=== PATIENT | male | born 1965 | race American Indian/Alaskan Native ===

== ENCOUNTER 2021-09-05 21:19 | Inpatient (IN) | payer SELFPAY ==
[2021-09-05 22:15] LABS: Basophils % (Auto) 0.1 % (0.0-1.8); Eosinophils % (Auto) 0.1 % (0.0-4.3); Hematocrit 44.7 % (35.5-45.6); Hemoglobin 15.1 gm/dl (11.8-15.2); Lymphocytes # (Auto) 0.5 K/mm3 (1.2-5.4); Lymphocytes % (Auto) 3.1 % (13.4-35.0); Mean Corpuscular HGB Conc 34 % (32-34); Mean Corpuscular Volume 91 fl (84-94); Monocytes # (Auto) 1.5 K/mm3 (0.0-0.8); Monocytes % (Auto) 9.6 % (0.0-7.3); Platelet Count 509 K/mm3 (140-440); Red Blood Count 4.88 M/mm3 (3.65-5.03); Red Cell Distribution Width 16.5 % (13.2-15.2)
[2021-09-05 22:32] LABS: Alanine Aminotransferase 25 units/L (7-56); Albumin 3.6 g/dL (3.9-5); BUN/Creatinine Ratio 17; Blood Urea Nitrogen 17 mg/dL (9-20); Calcium 10.1 mg/dL (8.4-10.2); Hemolysis Index 7
[2021-09-05 23:40] LABS: Hyaline Casts,Urine 5 /LPF; Mucus,Urine 3+ /HPF
[2021-09-05 23:42] LABS: Bilirubin,Urine Small (Negative); Color,Urine Amber (Yellow)
[2021-09-05 23:43] LABS: Blood,Urine Trace (Negative)
[2021-09-05 23:48] LABS: Ictotest,Urine Positive (Negative)
[2021-09-06] MEDS ORDERED: MORPHINE 4 MG/1 ML INJ IV ONE (00:20)
[2021-09-06] MEDS ORDERED: SODIUM CHLORIDE 0.9% 1000 ML 1,000 ML IV ONE (00:20)
[2021-09-06] MEDS ORDERED: ONDANSETRON 4 MG/2 ML INJ IV ONE (00:20)
[2021-09-06] MEDS ORDERED: FAMOTIDINE 20 MG/2 ML INJ IV ONE (00:20)
--- NOTE | 2021-09-06 01:55 | Cat Scan Report ---
CT abdomen pelvis w con INDICATION / CLINICAL INFORMATION: Pt complains of abdominal pain x 3 weeks with vomiting. TECHNIQUE: Axial CT images were obtained through the abdomen and pelvis after 100 cc Omni 300 IV cont r[address]. All CT scans at this location are performed using CT dose reduction for ALARA by means of auto mated exposure control. COMPARISON: None available. FINDINGS: LOWER CHEST: No significant abnormality LIVER: No significant abnormality GALLBLADDER/BILIARY TREE: No significant abnormality PANCREAS: No significant abnormality SPLEEN: No significant abnormality ADRENALS: Bilateral adrenal nodules, measuring 2.4 cm on the right and up to 1.2 cm on the left, inde terminate. RIGHT KIDNEY / URETER: No significant abnormality LEFT KIDNEY / URETER: No significant abnormality URINARY BLADDER: No significant abnormality REPRODUCTIVE ORGANS: No significant abnormality STOMACH / BOWEL: Large peripherally enhancing fluid and gas collection in the right abdomen measuring 12.2 x 7.7 x 8.4 cm. There is extensive mural thickening and inflammation of the ascending colon. Th e collection abuts the ascending colon and cecum. Appendix is not identified. No significant pneumope ritoneum. Stomach and small bowel are within normal limits. There is moderate diverticulosis of the d escending and sigmoid colon without evidence of diverticulitis. LYMPH NODES: Mildly enlarged lymph nodes in the right abdomen adjacent to the collection, may be reac tive. VASCULATURE: No significant abnormality. OTHER: As above SKELETAL SYSTEM: No acute osseous findings. IMPRESSION: 1. Large 12 cm abscess in the right abdomen with extensive mural thickening and inflammation of the a scending colon/cecum. Appendix is not identified. Findings may reflect acute appendicitis with large abscess/contained perforation and reactive colitis. This could also reflect abscess/contained perfora tion related to extensive colitis. No large volume free air. 2. No other acute findings. 3. Indeterminate bilateral adrenal nodules. Recommend nonemergent CT with adrenal mass protocol, foll owing resolution of acute process. Signer Name: Troy Mead MD Signed: 09/06/2021 1:50 AM Workstation Name: [id number]
[2021-09-06] MEDS ORDERED: PIPERACIL/TAZOBACTA 4.5/NS 100 4.5 GM/100 ML VIAL IV ONE (02:05)
--- NOTE | 2021-09-06 02:21 | Emergency Department Report ---
ED Abdominal Pain HPI - General Chief Complaint: Abdominal Pain Stated Complaint: AB PAIN Source: patient Mode of arrival: Ambulatory Limitations: No Limitations - History of Present Illness Initial Comments: Patient is a 56-year-old -[place]ian male with a history of hypertension who presents to the ED with complaint of acute onset persistent diffuse abdominal pain that radiates to the right lower quadrant area with nausea for the last 1 week. Patient states that he initially thought that he was constipated and took laxatives and he had bowel movement for 2 days and thereafter he was unable to have a bowel movement. Patient states that he has not had a bowel movement in 5 days and that the pain has been worsening especially in the last 2 days. Patient denies vomiting, diarrhea, dysuria, urinary frequency and urgency, fever, chills, cough, sore throat, dizziness, syncope, chest pain, shortness of breath, testicular pain, low back pain or traumatic injury. MD Complaint: abdominal pain (diffuse abdominal pain) -: week(s) (1) Location: periumbilical Radiation: RLQ Migration to: no migration Severity scale (0 -10): 8 Quality: cramping, sharp Consistency: constant Improves With: nothing Worsens With: nothing Associated Symptoms: denies other symptoms, nausea, constipation. denies: vomiting, diarrhea, chills, dysuria, hematemesis, hematochezia, melena, hematuria, anorexia, syncope - Related Data Allergies Allergy/AdvReac Type Severity Reaction Status Date / Time No Known Allergies Allergy Verified 09/05/21 21:54 ED Review of Systems ROS: Stated complaint: AB PAIN Other details as noted in HPI Constitutional: denies: chills, fever Eyes: denies: eye pain, eye discharge, vision change ENT: denies: ear pain, throat pain Respiratory: denies: cough, shortness of breath, wheezing Cardiovascular: denies: chest pain, palpitations Endocrine: no symptoms reported Gastrointestinal: abdominal pain, nausea, constipation. denies: vomiting, diarrhea Genitourinary: denies: urgency, dysuria Musculoskeletal: denies: back pain, joint swelling, arthralgia Skin: denies: rash, lesions Neurological: denies: headache, weakness, paresthesias Psychiatric: denies: anxiety, depression Hematological/Lymphatic: denies: easy bleeding, easy bruising ED Physical Exam - General Limitations: No Limitations General appearance: alert, in no apparent distress - Head Head exam: Present: atraumatic, normocephalic, normal inspection - Eye Eye exam: Present: normal appearance, PERRL, EOMI Pupils: Present: normal accommodation - ENT ENT exam: Present: normal exam, normal orophraynx, mucous membranes moist, TM's normal bilaterally, normal external ear exam - Neck Neck exam: Present: normal inspection, full ROM - Respiratory Respiratory exam: Present: normal lung sounds bilaterally. Absent: respiratory distress, wheezes, rales, chest wall tenderness, accessory muscle use, decreased breath sounds, prolonged expiratory - Cardiovascular Cardiovascular Exam: Present: regular rate, normal rhythm, normal heart sounds. Absent: systolic murmur, diastolic murmur, rubs, gallop - GI/Abdominal GI/Abdominal exam: Present: soft, tenderness (Palpable rebound tenderness on periumbilical and right lower quadrant area with guarding), guarding, rebound, normal bowel sounds. Absent: hyperactive bowel sounds, hypoactive bowel sounds, mass - Extremities Exam Extremities exam: Present: normal inspection, full ROM, normal capillary refill. Absent: tenderness - Back Exam Back exam: Present: normal inspection, full ROM. Absent: tenderness, CVA tenderness (R), CVA tenderness (L), muscle spasm, paraspinal tenderness, keny tebral tenderness - Neurological Exam Neurological exam: Present: alert, oriented X3, CN II-XII intact, normal gait, reflexes normal - Psychiatric Psychiatric exam: Present: normal affect, normal mood - Skin Skin exam: Present: warm, dry, intact, normal color. Absent: rash ED Course Vital Signs 09/05/21 21:22 Temperature 98.6 F Pulse Rate 84 Respiratory 18 Rate Blood Pressure 186/117 O2 Sat by Pulse 98 Oximetry - Reevaluation(s) Reevaluation #1: 09/06/21 02:26 I paged and discussed the patient's case with the general surgeon on-call Dr. Longo who advised that the patient be admitted by the hospitalist physician on- call and that the interventional radiologist also be consulted to be on board. I also paged the interventional radiologist Dr. Butcher who agreed to consult on the patient upon the patient's admission in the hospital. ED Medical Decision Making - Lab Data Result diagrams: 09/05/21 22:01 09/05/21 22:01 - Radiology Data Radiology results: report reviewed, image reviewed [facility] [address] [place] [address] Cat Scan Report Signed Patient: MURRAY NEAL MR#: [id number] : 1965 Acct:[id number] Age/Sex: 56 / M ADM Date: 09/05/21 Loc: ED Attending Dr: Ordering Physician: ADENIKE SPIVEY Date of Service: 09/06/21 Procedure(s): CT abdomen pelvis w con Accession Number(s): [id number] cc: ADENIKE SPIVEY CT abdomen pelvis w con INDICATION / CLINICAL INFORMATION: Pt complains of abdominal pain x 3 weeks with vomiting. TECHNIQUE: Axial CT images were obtained through the abdomen and pelvis after 100 cc Omni [address] scans at this location are performed using CT dose reduction for ALARA by means of automated exposure control. COMPARISON: None available. FINDINGS: LOWER CHEST: No significant abnormality LIVER: No significant abnormality GALLBLADDER/BILIARY TREE: No significant abnormality PANCREAS: No significant abnormality SPLEEN: No significant abnormality ADRENALS: Bilateral adrenal nodules, measuring 2.4 cm on the right and up to 1.2 cm on the left, indeterminate. RIGHT KIDNEY / URETER: No significant abnormality LEFT KIDNEY / URETER: No significant abnormality URINARY BLADDER: No significant abnormality REPRODUCTIVE ORGANS: No significant abnormality STOMACH / BOWEL: Large peripherally enhancing fluid and gas collection in the right abdomen measuring 12.2 x 7.7 x 8.4 cm. There is extensive mural thickening and inflammation of the ascending colon. The collection abuts the ascending colon and cecum. Appendix is not identified. No significant pneumoperitoneum. Stomach and small bowel are within normal limits. There is moderate diverticulosis of the descending and sigmoid colon without evidence of diverticulitis. LYMPH NODES: Mildly enlarged lymph nodes in the right abdomen adjacent to the collection, may be reactive. VASCULATURE: No significant abnormality. OTHER: As above SKELETAL SYSTEM: No acute osseous findings. IMPRESSION: 1. Large 12 cm abscess in the right abdomen with extensive mural thickening and inflammation of the ascending colon/cecum. Appendix is not identified. Findings may reflect acute appendicitis with large abscess/contained perforation and reactive colitis. This could also reflect abscess/contained perforation related to extensive colitis. No large volume free air. 2. No other acute findings. 3. Indeterminate bilateral adrenal nodules. Recommend nonemergent CT with adrenal mass protocol, following resolution of acute process. Signer Name: Panchito Mead MD Signed: 09/06/2021 1:50 AM Workstation Name: [id number] Transcribed By: LARRY Dictated By: PANCHITO MEAD MD Electronically Authenticated By: PANCHITO MEAD MD Signed Date/Time: 09/06/21149 DD/ 8 TD/TT: - Medical Decision Making This is a 56-year-old -Mal[place]ian male with a history of hypertension who presents to the ED with complaint of acute onset persistent diffuse abdominal pain that radiates to the right lower quadrant area with nausea for the last 1 week. Patient states that he initially thought that he was constipated and took laxatives and he had bowel movement for 2 days and thereafter he was unable to have a bowel movement. Patient states that he has not had a bowel movement in 5 days and that the pain has been worsening especially in the last 2 days. In the ED, patient is alert and oriented x3 and is not in any distress. Patient was treated for pain in the ED. Patient also received normal saline 1 L IV bolus x1. Patient also received antacids. Lab test results were reviewed and showed acute leukocytosis of 15,800. The rest of the lab test results were nonactionable. The abdomen pelvis CT scan with IV contrast showed a large 12 cm abscess in the right abdomen with extensive mural thickening and inflammation of the ascending colon/cecum. Appendix is not identified. Findings may reflect acute appendicitis with large abscess/contained perforation and reactive colitis. This could also reflect abscess/contained perforation related to extensive colitis. No large volume free air. No other acute findings. It also showed indeterminate bilateral adrenal nodules. Recommend nonemergent CT with adrenal mass protocol, following resolution of acute process. These findings were discussed with the ED attending physician Dr. Saldivar who agreed with the plan of care to admit the patient to the hospital and consult the general surgeon on- call as well as the hospitalist physician on-call. I therefore paged and discu ssed the patient's case with the general surgeon on-call Dr. Longo who advised that the patient be admitted to the hospital by the hospitalist physician on- call, Dr. Mireles and that interventional radiologist also be consulted to be on board. I also paged and discussed the patient's case with Dr. Butcher the interventional radiologist who agreed to consult on the patient upon admission to the hospital as a routine procedure. Therefore discussed the patient's case with the hospitalist physician on-call Dr. Mireles who admitted the patient to the hospital. Patient was also started on Zosyn 4.5 g IV x1 in the ED. - Differential Diagnosis Appendicitis; Kidney stones; UTI; Colitis; Constipation; diverticulitis Critical care attestation.: If time is entered above; I have spent that time in minutes in the direct care of this critically ill patient, excluding procedure time. ED Disposition Clinical Impression: Acute abdominal pain in right lower quadrant, Acute appendicitis with appendiceal abscess, Acute colitis Disposition: 02 [facility] Is pt being admited?: Yes Does the pt Need Aspirin: No Condition: Stable Instructions: Abdominal Pain, Adult, [id number], Appendicitis, Adult, [id number] Referrals: [facility] [Provider Group] - 3-5 Days Time of Disposition: 02:28 Print Language: LIBYAN
[2021-09-06] MEDS ORDERED: MAGNESIUM HYDROXIDE (MOM) ORAL LIQD UDC PO PRN (03:08)
[2021-09-06] MEDS ORDERED: MORPHINE 2 MG/1 ML INJ IV PRN (03:08)
[2021-09-06] MEDS ORDERED: ONDANSETRON 4 MG/2 ML INJ IV PRN ×2 (03:08→03:33)
[2021-09-06] MEDS ORDERED: ACETAMINOPHEN 325 MG TAB PO PRN ×2 (03:08→03:33)
--- NOTE | 2021-09-06 03:19 | History and Physical Report ---
History of Present Illness Date of examination: 09/06/21 Date of admission: 09/06/2021 Chief complaint: Abdominal Pain History of present illness: 56-year-old -[place] male with known history of hypertension presenting the emergency room today complaining of sudden onset of abdominal pain. Abdominal pain has been ongoing for the past 1 week. Pain is more in the right lower abdomen and has been associated with nausea but no vomiting. Indicates he was also constipated for about a week and took some laxative with good results about 2 days ago. He has subsequently been constipated. He denies any hematuria or dysuria, denies any bright red blood per rectum. Patient denies any chest pain or shortness of breath, no headache or dizziness and no diaphoresis. Work-up in the emergency room today, labs significant for leukocytosis of 15.8, all other labs were unremarkable. CT of the abdomen pelvis reveals: 1. Abnormality involving the left vertebral ar khushboo as described above. 2. Narrowing seen at the origin of the left internal carotid artery-correlation with carotid Doppler analysis may be of benefit. General surgeon on-call has been notified by the ER physician. Past History Past Medical History: hypertension Past Surgical History: No surgical history Social history: no significant social history Family history: no significant family history Medications and Allergies Allergies Allergy/AdvReac Type Severity Reaction Status Date / Time No Known Allergies Allergy Verified 09/05/21 21:54 Active Meds: Active Medications Acetaminophen (Acetaminophen 325 Mg Tab) 650 mg PO Q4H PRN PRN Reason: Pain MILD(1-3)/Fever >100.5/DURAND Sodium Chloride (Nacl 0.9% 1000 Ml) 1,000 mls @ 125 mls/hr IV DIRECT ERICH Magnesium Hydroxide (Magnesium Hydroxide (Mom) Oral Liqd Udc) 30 ml PO Q4H PRN PRN Reason: Constipation Morphine Sulfate (Morphine 2 Mg/1 Ml Inj) 2 mg IV Q4H PRN PRN Reason: Pain, Moderate (4-6) Morphine Sulfate (Morphine 4 Mg/1 Ml Inj) 4 mg IV Q4H PRN PRN Reason: Pain , Severe (7-10) Ondansetron HCl (Ondansetron 4 Mg/2 Ml Inj) 4 mg IV Q8H PRN PRN Reason: Nausea And Vomiting Sodium Chloride (Sodium Chloride 0.9% 10 Ml Flush Syringe) 10 ml IV BID ERICH Sodium Chloride (Sodium Chloride 0.9% 10 Ml Flush Syringe) 10 ml IV PRN PRN PRN Reason: LINE FLUSH Review of Systems Constitutional: no fever, no chills Ears, nose, mouth and throat: no nasal congestion, no sore throat Cardiovascular: no chest pain, no palpitations Respiratory: no cough, no shortness of breath Gastrointestinal: abdominal pain, nausea, no vomiting, no diarrhea, no constipation Genitourinary Male: no dysuria, no hematuria, no flank pain, no nocturia Musculoskeletal: no neck pain, no low back pain Integumentary: no rash, no pruritis Neurological: no headaches, no confusion Psychiatric: no anxiety, no depression Endocrine: no polyphagia, no polydipsia, no polyuria Exam - Constitutional Vitals: Temp Pulse Resp BP Pulse Ox 98.6 F 84 18 186/117 98 09/05/21 21:22 09/05/21 21:22 09/05/21 21:22 09/05/21 21:22 09/05/21 21:22 General appearance: Present: no acute distress, well-nourished - EENT Eyes: Present: PERRL, EOM intact. Absent: scleral icterus ENT: hearing intact, clear oral mucosa, dentition normal - Neck Neck: Present: supple, normal ROM - Respiratory Respiratory effort: normal Respiratory: bilateral: CTA - Cardiovascular Rhythm: regular Heart Sounds: Present: S1 & S2. Absent: gallop, systolic murmur, diastolic murmur, rub, click - Extremities Extremities: no ischemia, pulses intact, pulses symmetrical, No edema, normal temperature, normal color, Full ROM Peripheral Pulses: within normal limits - Abdominal General gastrointestinal: Present: soft, tender (Mild Right lower quadrant tenderness,No guarding), non-distended, normal bowel sounds. Absent: mass - Integumentary Integumentary: Present: clear, warm, dry, normal turgor. Absent: rash - Musculoskeletal Musculoskeletal: strength equal bilaterally - Psychiatric Psychiatric: appropriate mood/affect, intact judgment & insight, memory intact, cooperative - Neurologic Neurologic: CNII-XII intact, no focal deficits, moves all extremities Results - Labs CBC & Chem 7: 09/05/21 22:01 09/05/21 22:01 Labs: Abnormal lab results 09/05/21 09/05/21 09/05/21 Range/Units 22:01 22:01 22:01 WBC 15.8 H (4.5-11.0) K/mm3 RDW 16.5 H (13.2-15.2) % Plt Count 509 H (140-440) K/mm3 Lymph % (Auto) 3.1 L (13.4-35.0) % [place] % (Auto) 9.6 H (0.0-7.3) % Lymph # (Auto) 0.5 L (1.2-5.4) K/mm3 [place] # (Auto) 1.5 H (0.0-0.8) K/mm3 Seg Neutrophils % 87.1 H (40.0-70.0) % Seg Neutrophils # 13.8 H (1.8-7.7) K/mm3 Sodium 136 L (137-145) mmol/L Chloride 92.0 L (98-107) mmol/L Glucose 130 H (75-100) mg/dL Total Protein 9.2 H (6.3-8.2) g/dL Albumin 3.6 L (3.9-5) g/dL Lipase 7 L (13-60) units/L Assessment and Plan - Patient Problems (1) Acute appendicitis with appendiceal abscess Current Visit: Yes Status: Acute Plan to address problem: Patient commenced on empiric IV antibiotics. Consult to general surgery has been requested. (2) Hypertension Current Visit: Yes Status: Acute Plan to address problem: Will resume routine home medication once able to tolerate p.o. intake. Will monitor vital signs closely. (3) DVT prophylaxis Current Visit: Yes Status: Acute Plan to address problem: Will place patient on sequential compression device. (4) Full code status Current Visit: Yes Status: Acute Plan to address problem: Patient is full code.
--- NOTE | 2021-09-06 06:53 | Consultation ---
History of Present Illness Consult date: 09/06/21 Reason for consult: abdominal pain - History of present illness History of present illness: Patient is a 56-year-old -[place] male with a history of hypertension who presents to the ED with complaint of acute onset persistent diffuse abdominal pain that radiates to the right lower quadrant area with nausea for the last 1 week. Patient states that he initially thought that he was constipated and took laxatives and he had bowel movement for 2 days and thereafter he was unable to have a bowel movement. Patient states that he has not had a bowel movement in 5 days and that the pain has been worsening especially in the last 2 days. Patient denies vomiting, diarrhea, dysuria, urinary frequency and urgency, fever, chills, cough, sore throat, dizziness, syncope, chest pain, shortness of breath, testicular pain, low back pain or traumatic injury. Past History Past Medical History: hypertension Past Surgical History: No surgical history Social history: no significant social history Family history: no significant family history Medications and Allergies Allergies Allergy/AdvReac Type Severity Reaction Status Date / Time No Known Allergies Allergy Verified 09/05/21 21:54 Active Meds: Active Medications Acetaminophen (Acetaminophen 325 Mg Tab) 650 mg PO Q4H PRN PRN Reason: Pain MILD(1-3)/Fever >100.5/DURAND Sodium Chloride (Nacl 0.9% 1000 Ml) 1,000 mls @ 125 mls/hr IV DIRECT ERICH Piperacillin Sod/Tazobactam Sod (Zosyn/Ns 4.5gm/100ml) 4.5 gm in 100 mls @ 200 mls/hr IV Q8H ERICH; Protocol Magnesium Hydroxide (Magnesium Hydroxide (Mom) Oral Liqd Udc) 30 ml PO Q4H PRN PRN Reason: Constipation Morphine Sulfate (Morphine 2 Mg/1 Ml Inj) 2 mg IV Q4H PRN PRN Reason: Pain, Moderate (4-6) Morphine Sulfate (Morphine 4 Mg/1 Ml Inj) 4 mg IV Q4H PRN PRN Reason: Pain , Severe (7-10) Ondansetron HCl (Ondansetron 4 Mg/2 Ml Inj) 4 mg IV Q8H PRN PRN Reason: Nausea And Vomiting Sodium Chloride (Sodium Chloride 0.9% 10 Ml Flush Syringe) 10 ml IV BID ERICH Sodium Chloride (Sodium Chloride 0.9% 10 Ml Flush Syringe) 10 ml IV PRN PRN PRN Reason: LINE FLUSH Exam Vital Signs Temp Pulse Resp BP Pulse Ox 98.6 F 84 18 186/117 98 09/05/21 21:22 09/05/21 21:22 09/05/21 21:22 09/05/21 21:22 09/05/21 21:22 - General physical appearance Positive: well developed, no distress. Negative: moderate distress - Neck Positive: no masses, no bruits, trachea midline - Respiratory Positive: normal expansion - Cardiovascular Rhythm: regular - Extremities Extremities: no ischemia, No edema - Abdomen Abdomen: Present: other (soft, tenderness (Palpable rebound tenderness on periumbilical and right lower quadrant area with guarding), guarding, rebound, normal bowel sounds. Absent: hyperactive bowel sounds, hypoactive bowel sounds, mass) - Neurologic Neurologic: alert and oriented to time, place and person, motor strength and se nsation are grossly intact, CN II-XII intact Results - Labs 09/05/21 22:01 09/05/21 22:01 Abnormal lab results 09/05/21 09/05/21 09/05/21 Range/Units 22:01 22:01 22:01 WBC 15.8 H (4.5-11.0) K/mm3 RDW 16.5 H (13.2-15.2) % Plt Count 509 H (140-440) K/mm3 Lymph % (Auto) 3.1 L (13.4-35.0) % [place] % (Auto) 9.6 H (0.0-7.3) % Lymph # (Auto) 0.5 L (1.2-5.4) K/mm3 [place] # (Auto) 1.5 H (0.0-0.8) K/mm3 Seg Neutrophils % 87.1 H (40.0-70.0) % Seg Neutrophils # 13.8 H (1.8-7.7) K/mm3 Sodium 136 L (137-145) mmol/L Chloride 92.0 L (98-107) mmol/L Glucose 130 H (75-100) mg/dL Total Protein 9.2 H (6.3-8.2) g/dL Albumin 3.6 L (3.9-5) g/dL Lipase 7 L (13-60) units/L Diabetes panel 09/05/21 Range/Units 22:01 Sodium 136 L (137-145) mmol/L Potassium 3.8 (3.6-5.0) mmol/L Chloride 92.0 L (98-107) mmol/L Carbon Dioxide 27 (22-30) mmol/L BUN 17 (9-20) mg/dL Creatinine 1.0 (0.8-1.3) mg/dL Glucose 130 H (75-100) mg/dL Calcium 10.1 (8.4-10.2) mg/dL AST 25 (5-40) units/L ALT 25 (7-56) units/L Alkaline Phosphatase 108 (35-129) units/L Total Protein 9.2 H (6.3-8.2) g/dL Albumin 3.6 L (3.9-5) g/dL Calcium panel 09/05/21 Range/Units 22:01 Calcium 10.1 (8.4-10.2) mg/dL Albumin 3.6 L (3.9-5) g/dL Pituitary panel 09/05/21 Range/Units 22:01 Sodium 136 L (137-145) mmol/L Potassium 3.8 (3.6-5.0) mmol/L Chloride 92.0 L (98-107) mmol/L Carbon Dioxide 27 (22-30) mmol/L BUN 17 (9-20) mg/dL Creatinine 1.0 (0.8-1.3) mg/dL Glucose 130 H (75-100) mg/dL Calcium 10.1 (8.4-10.2) mg/dL Adrenal panel 09/05/21 Range/Units 22:01 Sodium 136 L (137-145) mmol/L Potassium 3.8 (3.6-5.0) mmol/L Chloride 92.0 L (98-107) mmol/L Carbon Dioxide 27 (22-30) mmol/L BUN 17 (9-20) mg/dL Creatinine 1.0 (0.8-1.3) mg/dL Glucose 130 H (75-100) mg/dL Calcium 10.1 (8.4-10.2) mg/dL Total Bilirubin 0.50 (0.1-1.2) mg/dL AST 25 (5-40) units/L ALT 25 (7-56) units/L Alkaline Phosphatase 108 (35-129) units/L Total Protein 9.2 H (6.3-8.2) g/dL Albumin 3.6 L (3.9-5) g/dL Assessment and Plan 56 yo with 12 cm retrocecal fluid/abscess and air. He is more comfortable than would be expected from the CT images. WBC 15,000. Would appreciate Dr. Butcher's evaluation for possible percutaneous drainage of abscess. Cont npo, ivf for hydration and iv ab.
[2021-09-06] MEDS: MORPHINE 4 MG/1 ML INJ IV PRN ×3 (07:29→22:20)
[2021-09-06] MEDS: SODIUM CHLORIDE 0.9% 1000 ML 1,000 ML IV SCH ×3 (08:07→23:28)
[2021-09-06] MEDS: PIPERACIL/TAZOBACTA 4.5/NS 100 4.5 GM/100 ML VIAL IV SCH ×2 (09:14→17:52)
--- NOTE | 2021-09-06 10:20 | Progress Note ---
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 Patient stated that he had not had a bowel movement in 5 days and that the pain worsened the last [address] scan of the abdomen pelvis revealed a large 12 cm abscess in the right abdomen with extensive mural thickening and inflammation of the ascending colon/cecum. Findings suggestive of acute appendicitis with large abscess and contained perforation and reactive colitis. Also, bilateral adrenal nodules Acute appendicitis Appendiceal abscess Acute colitis Bilateral adrenal nodules. 2.4 cm on the right and up to 1.2 cm on the left Accelerated hypertension 09/06/2021. General surgery consulted and likely to perform appendectomy. Continue IV antibiotics and monitor closely. We will start IV hydralazine given n.p.o. status. Patient will also need further work-up given the hypertension and bilateral adrenal nodules with CT contrast adrenal mass protocol. History Interval history: No new issues overnight Hospitalist Physical - Constitutional Vitals: Temp Pulse Resp BP Pulse Ox 98.5 F 65 16 193/107 96 09/06/21 07:00 09/06/21 08:16 09/06/21 08:16 09/06/21 08:16 09/06/21 08:16 General appearance: Present: no acute distress, well-nourished - EENT Eyes: Present: PERRL, EOM intact ENT: hearing intact, clear oral mucosa, dentition normal - Neck Neck: Present: supple, normal ROM - Respiratory Respiratory effort: normal Respiratory: bilateral: CTA - Cardiovascular Rhythm: regular Heart Sounds: Present: S1 & S2. Absent: gallop, rub - Extremities Extremities: no ischemia, No edema, Full ROM - Abdominal General gastrointestinal: soft, non-tender, non-distended, normal bowel sounds - Integumentary Integumentary: Present: clear, warm, dry - Neurologic Neurologic: CNII-XII intact, moves all extremities Results - Labs CBC & Chem 7: 09/05/21 22:01 09/05/21 22:01 Labs: Laboratory Last Values WBC 15.8 K/mm3 (4.5-11.0) H 09/05/21 22:01 RBC 4.88 M/mm3 (3.65-5.03) 09/05/21 22: Hgb 15.1 gm/dl (11.8-15.2) 09/05/21 22:01 Hct 44.7 % (35.5-45.6) 09/05/21 22: MCV 91 fl (84-94) 09/05/21 22: MCH 31 pg (28-32) 09/05/21 22: MCHC 34 % (32-34) 09/05/21 22: RDW 16.5 % (13.2-15.2) H 09/05/21 22: Plt Count 509 K/mm3 (140-440) H 09/05/21 22:01 Lymph % (Auto) 3.1 % (13.4-35.0) L 09/05/21 22: [place] % (Auto) 9.6 % (0.0-7.3) H 09/05/21 22:01 Eos % (Auto) 0.1 % (0.0-4.3) 09/05/21 22:01 Baso % (Auto) 0.1 % (0.0-1.8) 09/05/21 22: Lymph # (Auto) 0.5 K/mm3 (1.2-5.4) L 09/05/21 22:01 [place] # (Auto) 1.5 K/mm3 (0.0-0.8) H 09/05/21 22:01 Eos # (Auto) 0.0 K/mm3 (0.0-0.4) 09/05/21 22:01 Baso # (Auto) 0.0 K/mm3 (0.0-0.1) 09/05/21 22: Seg Neutrophils % 87.1 % (40.0-70.0) H 09/05/21 22: Seg Neutrophils # 13.8 K/mm3 (1.8-7.7) H 09/05/21 22:01 Sodium 136 mmol/L (137-145) L 09/05/21 22: Potassium 3.8 mmol/L (3.6-5.0) 09/05/21 22:01 Chloride 92.0 mmol/L (98-107) L 09/05/21 22:01 Carbon Dioxide 27 mmol/L (22-30) 09/05/21 22:01 Anion Gap 21 mmol/L 09/05/21 22:01 BUN 17 mg/dL (9-20) 09/05/21 22:01 Creatinine 1.0 mg/dL (0.8-1.3) 09/05/21 22:01 Estimated GFR > 60 ml/min 09/05/21 22:01 BUN/Creatinine Ratio 17 % 09/05/21 22:01 Glucose 130 mg/dL (75-100) H 09/05/21 22:01 Calcium 10.1 mg/dL (8.4-10.2) 09/05/21 22:01 Total Bilirubin 0.50 mg/dL (0.1-1.2) 09/05/21 22:01 AST 25 units/L (5-40) 09/05/21 22:01 ALT 25 units/L (7-56) 09/05/21 22:01 Alkaline Phosphatase 108 units/L (35-129) 09/05/21 22:01 Total Protein 9.2 g/dL (6.3-8.2) H 09/05/21 22:01 Albumin 3.6 g/dL (3.9-5) L 09/05/21 22:01 Albumin/Globulin Ratio 0.6 % 09/05/21 22:01 Lipase 7 units/L (13-60) L 09/05/21 22:01 Urine Color Kristy (Yellow) 09/05/21 Unknown Urine Turbidity Clear (Clear) 09/05/21 Unknown Urine pH 6.0 (5.0-7.0) 09/05/21 Unknown Ur Specific [place] 1.025 (1.003-1.030) 09/05/21 Unknown Urine Protein 30 mg/dl mg/dL (Negative) 09/05/21 Unknown Urine Glucose (UA) Negative mg/dL (Negative) 09/05/21 Unknown Urine Ketones 5 mg/dL (Negative) 09/05/21 Unknown Urine Blood Trace (Negative) 09/05/21 Unknown Urine Nitrite Negative (Negative) 09/05/21 Unknown Ur Reducing Substances Not Reportable 09/05/21 Unknown Urine Bilirubin Small (Negative) 09/05/21 Unknown Urine Ictotest Positive (Negative) 09/05/21 Unknown Urine Urobilinogen 2.0 mg/dL (<2.0) 09/05/21 Unknown Ur Leukocyte Esterase Negative (Negative) 09/05/21 Unknown Urine WBC (Auto) 3.0 /HPF (0.0-6.0) 09/05/21 Unknown Urine RBC (Auto) 9.0 /HPF (0.0-6.0) 09/05/21 Unknown U Epithel Cells (Auto) 1.0 /HPF (0-13.0) 09/05/21 Unknown Hyaline Casts 5 /LPF 09/05/21 Unknown Urine Mucus 3+ /HPF 09/05/21 Unknown Active Medications - Current Medications Current Medications: Generic Name Dose Route Start Last Admin Trade Name Freq PRN Reason Stop Dose Admin Acetaminophen 650 mg 09/06/21 03:08 Acetaminophen 325 Mg Tab PO Q4H PRN Pain MILD(1-3)/Fever >100.5/DURAND Sodium Chloride 1,000 mls @ 125 mls/hr 09/06/21 03:15 09/06/21 08:07 Nacl 0.9% 1000 Ml IV 125 mls/hr DIRECT ERICH Administration Piperacillin Sod/Tazobactam Sod 4.5 gm in 100 mls @ 200 mls/hr 09/06/21 10:00 09/06/21 09:14 Zosyn/Ns 4.5gm/100ml IV 200 mls/hr Q8H ERICH Administration Protocol Magnesium Hydroxide 30 ml 09/06/21 03:08 Magnesium Hydroxide (Mom) Oral Liqd Udc PO Q4H PRN Constipation Morphine Sulfate 2 mg 09/06/21 03:08 Morphine 2 Mg/1 Ml Inj IV Q4H PRN Pain, Moderate (4-6) Morphine Sulfate 4 mg 09/06/21 03:08 09/06/21 07:29 Morphine 4 Mg/1 Ml Inj IV 4 mg Q4H PRN Administration Pain , Severe (7-10) Ondansetron HCl 4 mg 09/06/21 03:08 09/06/21 07:29 Ondansetron 4 Mg/2 Ml Inj IV 4 mg Q8H PRN Administration Nausea And Vomiting Sodium Chloride 10 ml 09/06/21 10:00 09/06/21 09:14 Sodium Chloride 0.9% 10 Ml Flush Syringe IV 10 ml BID ERICH Administration Sodium Chloride 10 ml 09/06/21 03:33 Sodium Chloride 0.9% 10 Ml Flush Syringe IV PRN PRN LINE FLUSH
[2021-09-06] MEDS: hydrALAZINE 20 MG/1 ML INJ IV PRN ×2 (11:30→18:17)
--- NOTE | 2021-09-06 18:05 | Event Note ---
Date: 09/06/21 Had planned on placing drainage catheter and patient's right lower quadrant abscess. No CT techs available. Plan on attempting ultrasound-guided access in the Electronic Intelligence Officer however, low staffing prevents this from being performed today. The patient will be scheduled for CT-guided drainage and catheter placement in his abscess tomorrow.
[2021-09-07] MEDS: PIPERACIL/TAZOBACTA 4.5/NS 100 4.5 GM/100 ML VIAL IV SCH ×3 (01:40→19:06)
[2021-09-07 06:04] LABS: Basophils # (Auto) 0.1 K/mm3 (0.0-0.1); Basophils % (Auto) 0.5 % (0.0-1.8); Eosinophils % (Auto) 0.2 % (0.0-4.3); Hematocrit 40.2 % (35.5-45.6); Lymphocytes # (Auto) 0.8 K/mm3 (1.2-5.4); Lymphocytes % (Auto) 6.6 % (13.4-35.0); Mean Corpuscular HGB Conc 32 % (32-34); Mean Corpuscular Volume 92 fl (84-94); Monocytes # (Auto) 1.5 K/mm3 (0.0-0.8); Platelet Count 452 K/mm3 (140-440); Red Blood Count 4.39 M/mm3 (3.65-5.03); Red Cell Distribution Width 16.6 % (13.2-15.2)
[2021-09-07 06:21] LABS: BUN/Creatinine Ratio 13; Blood Urea Nitrogen 10 mg/dL (9-20); Hemolysis Index 0
[2021-09-07] MEDS: SODIUM CHLORIDE 0.9% 1000 ML 1,000 ML IV SCH (08:25)
--- NOTE | 2021-09-07 09:14 | Progress Note ---
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 Patient states that he initially thought that he was constipated and took laxatives and he had bowel movement for 2 days and thereafter he was unable to have a bowel movement. 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 CT scan of the abdomen pelvis revealed a large 12 cm abscess in the right abdomen with extensive mural thickening and inflammation of the ascending colon/cecum. Findings suggestive of acute appendicitis with large abscess and contained perforation and reactive colitis. Also, bilateral adrenal nodules Acute appendicitis Appendiceal abscess Acute colitis Bilateral adrenal nodules. 2.4 cm on the right and up to 1.2 cm on the left Accelerated hypertension 09/06/2021. General surgery consulted and likely to perform appendectomy. Continue IV antibiotics and monitor closely. We will start IV hydralazine given n.p.o. status. Patient will also need further work-up given the hypertension and bilateral adrenal nodules with CT contrast adrenal mass protocol. 09/07/2021. Patient reportedly had planned placement for right lower quadrant catheter for drainage of abscess. However, apparently there were no CT techs available. Also, IR reported plans on attempting ultrasound-guided access in the Interventional Radiology Tech however, low staffing prevents this from being performed yesterday. The patient will have r a CT guided drainage and catheter placement for abscess today. Continue IV antibiotics and consult ID for further evaluation. Patient will need outpatient follow-up for adrenal nodules. History Interval history: No new issues overnight Hospitalist Physical - Constitutional Vitals: Temp Pulse Resp BP Pulse Ox 99.4 F 87 18 172/92 99 09/06/21 21:16 09/06/21 21:16 09/06/21 23:19 09/06/21 21:16 09/06/21 22:00 General appearance: Present: no acute distress, well-nourished - EENT Eyes: Present: PERRL, EOM intact ENT: hearing intact, clear oral mucosa, dentition normal - Neck Neck: Present: supple, normal ROM - Respiratory Respiratory effort: normal Respiratory: bilateral: CTA - Cardiovascular Rhythm: regular Heart Sounds: Present: S1 & S2. Absent: gallop, rub - Extremities Extremities: no ischemia, No edema, Full ROM - Abdominal General gastrointestinal: soft, non-tender, non-distended, normal bowel sounds - Integumentary Integumentary: Present: clear, warm, dry - Neurologic Neurologic: CNII-XII intact, moves all extremities Results - Labs CBC & Chem 7: 09/07/21 05:40 09/07/21 05:40 Labs: Laboratory Last Values WBC 12.8 K/mm3 (4.5-11.0) H 09/07/21 05:40 RBC 4.39 M/mm3 (3.65-5.03) 09/07/21 05:40 Hgb 13.0 gm/dl (11.8-15.2) 09/07/21 05:40 Hct 40.2 % (35.5-45.6) 09/07/21 05:40 MCV 92 fl (84-94) 09/07/21 05:40 MCH 30 pg (28-32) 09/07/21 05:40 MCHC 32 % (32-34) 09/07/21 05:40 RDW 16.6 % (13.2-15.2) H 09/07/21 05:40 Plt Count 452 K/mm3 (140-440) H 09/07/21 05:40 Lymph % (Auto) 6.6 % (13.4-35.0) L 09/07/21 05:40 [place] % (Auto) 12.0 % (0.0-7.3) H 09/07/21 05:40 Eos % (Auto) 0.2 % (0.0-4.3) 09/07/21 05:40 Baso % (Auto) 0.5 % (0.0-1.8) 09/07/21 05:40 Lymph # (Auto) 0.8 K/mm3 (1.2-5.4) L 09/07/21 05:40 [place] # (Auto) 1.5 K/mm3 (0.0-0.8) H 09/07/21 05:40 Eos # (Auto) 0.0 K/mm3 (0.0-0.4) 09/07/21 05:40 Baso # (Auto) 0.1 K/mm3 (0.0-0.1) 09/07/21 05:40 Seg Neutrophils % 80.7 % (40.0-70.0) H 09/07/21 05:40 Seg Neutrophils # 10.3 K/mm3 (1.8-7.7) H 09/07/21 05:40 Sodium 138 mmol/L (137-145) 09/07/21 05:40 Potassium 3.3 mmol/L (3.6-5.0) L 09/07/21 05:40 Chloride 101.6 mmol/L (98-107) 09/07/21 05:40 Carbon Dioxide 25 mmol/L (22-30) 09/07/21 05:40 Anion Gap 15 mmol/L 09/07/21 05:40 BUN 10 mg/dL (9-20) 09/07/21 05:40 Creatinine 0.8 mg/dL (0.8-1.3) 09/07/21 05:40 Estimated GFR > 60 ml/min 09/07/21 05:40 BUN/Creatinine Ratio 13 % 09/07/21 05:40 Glucose 100 mg/dL (75-100) 09/07/21 05:40 Calcium 9.0 mg/dL (8.4-10.2) 09/07/21 05:40 Total Bilirubin 0.50 mg/dL (0.1-1.2) 09/05/21 22:01 AST 25 units/L (5-40) 09/05/21 22:01 ALT 25 units/L (7-56) 09/05/21 22:01 Alkaline Phosphatase 108 units/L (35-129) 09/05/21 22:01 Total Protein 9.2 g/dL (6.3-8.2) H 09/05/21 22:01 Albumin 3.6 g/dL (3.9-5) L 09/05/21 22:01 Albumin/Globulin Ratio 0.6 % 09/05/21 22:01 Lipase 7 units/L (13-60) L 09/05/21 22:01 Urine Color Kristy (Yellow) 09/05/21 Unknown Urine Turbidity Clear (Clear) 09/05/21 Unknown Urine pH 6.0 (5.0-7.0) 09/05/21 Unknown Ur Specific [place] 1.025 (1.003-1.030) 09/05/21 Unknown Urine Protein 30 mg/dl mg/dL (Negative) 09/05/21 Unknown Urine Glucose (UA) Negative mg/dL (Negative) 09/05/21 Unknown Urine Ketones 5 mg/dL (Negative) 09/05/21 Unknown Urine Blood Trace (Negative) 09/05/21 Unknown Urine Nitrite Negative (Negative) 09/05/21 Unknown Ur Reducing Substances Not Reportable 09/05/21 Unknown Urine Bilirubin Small (Negative) 09/05/21 Unknown Urine Ictotest Positive (Negative) 09/05/21 Unknown Urine Urobilinogen 2.0 mg/dL (<2.0) 09/05/21 Unknown Ur Leukocyte Esterase Negative (Negative) 09/05/21 Unknown Urine WBC (Auto) 3.0 /HPF (0.0-6.0) 09/05/21 Unknown Urine RBC (Auto) 9.0 /HPF (0.0-6.0) 09/05/21 Unknown U Epithel Cells (Auto) 1.0 /HPF (0-13.0) 09/05/21 Unknown Hyaline Casts 5 /LPF 09/05/21 Unknown Urine Mucus 3+ /HPF 09/05/21 Unknown [place]/IV: Voiding Method Urinal Active Medications - Current Medications Current Medications: Generic Name Dose Route Start Last Admin Trade Name Freq PRN Reason Stop Dose Admin Acetaminophen 650 mg 09/06/21 03:08 09/06/21 22:19 Acetaminophen 325 Mg Tab PO 650 mg Q4H PRN Administration Pain MILD(1-3)/Fever >100.5/DURAND Hydralazine HCl 20 mg 09/06/21 11:06 09/06/21 18:17 Hydralazine 20 Mg/1 Ml Inj IV 20 mg Q4HR PRN Administration Blood Pressure Sodium Chloride 1,000 mls @ 125 mls/hr 09/06/21 03:15 09/07/21 08:25 Nacl 0.9% 1000 Ml IV 125 mls/hr DIRECT ERICH Administration Piperacillin Sod/Tazobactam Sod 4.5 gm in 100 mls @ 200 mls/hr 09/06/21 10:00 09/07/21 01:40 Zosyn/Ns 4.5gm/100ml IV 200 mls/hr Q8H ERICH Administration Protocol Magnesium Hydroxide 30 ml 09/06/21 03:08 Magnesium Hydroxide (Mom) Oral Liqd Udc PO Q4H PRN Constipation Morphine Sulfate 2 mg 09/06/21 03:08 Morphine 2 Mg/1 Ml Inj IV Q4H PRN Pain, Moderate (4-6) Morphine Sulfate 4 mg 09/06/21 03:08 09/06/21 22:20 Morphine 4 Mg/1 Ml Inj IV 4 mg Q4H PRN Administration Pain , Severe (7-10) Ondansetron HCl 4 mg 09/06/21 03:08 09/06/21 07:29 Ondansetron 4 Mg/2 Ml Inj IV 4 mg Q8H PRN Administration Nausea And Vomiting Sodium Chloride 10 ml 09/06/21 10:00 09/06/21 22:21 Sodium Chloride 0.9% 10 Ml Flush Syringe IV 10 ml BID ERICH Administration Sodium Chloride 10 ml 09/06/21 03:33 Sodium Chloride 0.9% 10 Ml Flush Syringe IV PRN PRN LINE FLUSH
[2021-09-07] MEDS ORDERED: LIDOCAINE 1%/EPINEPHRINE 1:100,000 VIAL (20 ML) INFILTRATI NR (09:45)
[2021-09-07] MEDS ORDERED: LIDOCAINE 2%/EPINEPHRINE 1:200,000 VIAL (20 ML) INFILTRATI ONE (09:46)
[2021-09-07] MEDS ORDERED: MIDAZOLAM 5 MG/5 ML INJ MDV IV NR (10:00)
[2021-09-07] MEDS ORDERED: fentaNYL 100 MCG/2 ML INJ IV ONE (10:00)
[2021-09-07] MEDS ORDERED: SODIUM CHLORIDE 0.9% 500 ML 0 ML ONE (10:37)
--- NOTE | 2021-09-07 12:00 | Operative Report ---
Operative Report Operative Report: EXAM: CT-guided placement of a 12 Marshallese APD drain in the right lower quadrant abdominal fluid collection. DATE: 09/07/2021 ADULT SCHOOL COUNSELOR: MARIETTA AYON MD INDICATION: Right lower quadrant abdominal fluid collection with request for drainage. MEDICATIONS: Please see nursing report for full details. DEVICES: 12 Marshallese APD drain CONTRAST: 100 mL of nonionic contrast PROCEDURE: The risk, benefits, and alternatives were discussed with the patient; written informed consent was obtained. The patient was brought to the CT gantry and placed in a left lateral position. Breed was applied. Commercial Subcontractor imaging was obtained. CT preliminary images were obtained which then required IV contrast in order to confirm the area of drainage. After this was performed, the area was cleaned with ChloraPrep and sterile prep was performed. The area was anesthetized with lidocaine and under intermittent CT guidance, an 18-gauge needle was passed into the fluid collection. 0.035 inch wire was passed into the collection confirmed with CT guidance, and serial dilatation was performed with ultimate placement of a 12 Marshallese APD drain. Approximately 90 mL of purulent material was removed and sent for culture. 2-0 silk sutures were used to secure the site and then the site was secured with Tegaderm dressing. Final CT was performed demonstrating drainage of nearly all of the collection. Patient tolerated the procedure well. No immediate postprocedural complications. FINDINGS: Successful CT-guided placement of a 12 Marshallese APD drain in the right lower quadrant IMPRESSION: Successful CT-guided placement of a 12 Marshallese APD drain in the right lower quadrant fluid collection.
--- NOTE | 2021-09-07 12:13 | Event Note ---
Date: 09/07/21 Successful fluid drainage. Sent for culture. Recommend repeat CT scan in the next 3 to 5 days for reevaluation. May be eligible for drain removal at that time.
--- NOTE | 2021-09-07 14:46 | Progress Note ---
Assessment and Plan 56-year-old male with large right lower quadrant fluid collection consistent with abscess. Possibly due to remote perforation of appendix. Patient is afebrile and stable with slight decrease in leukocytosis, status post CT-guided drainage. Recommendations: 1. continue abx and supportive care 2. keep on clear liquids through the weekend 3. per IR repeat CT in 3-5 days to evaluate collection s/p drainage Subjective Date of service: 09/07/21 Narrative: No acute events overnight. Patient has CT-guided drainage of his right lower quadrant abscess collection this morning that was successful. Patient says that he feels okay since the procedure was done. Objective Vital Signs - 12hr 09/07/21 09/07/21 09/07/21 10:16 11:04 11:08 Temperature Pulse Rate Pulse Rate [ Intra-Procedure ] Pulse Rate [ Post-Procedure] Pulse Rate [Pre 65 61 -Procedure] Respiratory 18 Rate Respiratory Rate [Intra- Procedure] Respiratory Rate [Post- Procedure] Respiratory 29 H 18 Rate [Pre- Procedure] Blood Pressure Blood Pressure [Intra- Procedure] Blood Pressure [Post-Procedure ] Blood Pressure 167/95 169/85 [Pre-Procedure] O2 Sat by Pulse Oximetry O2 Sat by Pulse Oximetry [ Intra-Procedure ] O2 Sat by Pulse Oximetry [Post -Procedure] 09/07/21 09/07/21 09/07/21 11:10 11:15 11:20 Temperature Pulse Rate Pulse Rate [ 66 70 77 Intra-Procedure ] Pulse Rate [ Post-Procedure] Pulse Rate [Pre -Procedure] Respiratory Rate Respiratory 17 21 12 Rate [Intra- Procedure] Respiratory Rate [Post- Procedure] Respiratory Rate [Pre- Procedure] Blood Pressure Blood Pressure 165/81 156/82 188/90 [Intra- Procedure] Blood Pressure [Post-Procedure ] Blood Pressure [Pre-Procedure] O2 Sat by Pulse Oximetry O2 Sat by Pulse 100 100 100 Oximetry [ Intra-Procedure ] O2 Sat by Pulse Oximetry [Post -Procedure] 09/07/21 09/07/21 09/07/21 11:25 11:36 11:58 Temperature 98.2 F Pulse Rate 70 Pulse Rate [ 75 Intra-Procedure ] Pulse Rate [ 67 Post-Procedure] Pulse Rate [Pre -Procedure] Respiratory 18 Rate Respiratory 17 Rate [Intra- Procedure] Respiratory 13 Rate [Post- Procedure] Respiratory Rate [Pre- Procedure] Blood Pressure 222/113 Blood Pressure 194/91 [Intra- Procedure] Blood Pressure 187/99 [Post-Procedure ] Blood Pressure [Pre-Procedure] O2 Sat by Pulse 97 Oximetry O2 Sat by Pulse 100 Oximetry [ Intra-Procedure ] O2 Sat by Pulse 98 Oximetry [Post -Procedure] - General physical appearance well developed, well nourished, no distress, no pain - Eyes PERRL - ENT no hearing loss - Respiratory normal expansion, normal respiratory effort - Abdomen soft, not distended, not rebound, not guarding, not rigid, other (Tender to palpation right lower quadrant, drain with dark purulent fluid visible) - Neurologic normal coordination, normal sensation - Musculoskeletal normal gait - Psychiatric oriented to time, oriented to person - Labs 09/07/21 05:40 09/07/21 05:40 Diabetes panel 09/07/21 Range/Units 05:40 Sodium 138 (137-145) mmol/L Potassium 3.3 L (3.6-5.0) mmol/L Chloride 101.6 (98-107) mmol/L Carbon Dioxide 25 (22-30) mmol/L BUN 10 (9-20) mg/dL Creatinine 0.8 (0.8-1.3) mg/dL Glucose 100 (75-100) mg/dL Calcium 9.0 (8.4-10.2) mg/dL Calcium panel 09/07/21 Range/Units 05:40 Calcium 9.0 (8.4-10.2) mg/dL Pituitary panel 09/07/21 Range/Units 05:40 Sodium 138 (137-145) mmol/L Potassium 3.3 L (3.6-5.0) mmol/L Chloride 101.6 (98-107) mmol/L Carbon Dioxide 25 (22-30) mmol/L BUN 10 (9-20) mg/dL Creatinine 0.8 (0.8-1.3) mg/dL Glucose 100 (75-100) mg/dL Calcium 9.0 (8.4-10.2) mg/dL Adrenal panel 09/07/21 Range/Units 05:40 Sodium 138 (137-145) mmol/L Potassium 3.3 L (3.6-5.0) mmol/L Chloride 101.6 (98-107) mmol/L Carbon Dioxide 25 (22-30) mmol/L BUN 10 (9-20) mg/dL Creatinine 0.8 (0.8-1.3) mg/dL Glucose 100 (75-100) mg/dL Calcium 9.0 (8.4-10.2) mg/dL
[2021-09-07] MEDS: hydrALAZINE 20 MG/1 ML INJ IV PRN ×2 (15:33→22:35)
[2021-09-07] MEDS: MORPHINE 4 MG/1 ML INJ IV PRN (22:24)
[2021-09-08] MEDS: SODIUM CHLORIDE 0.9% 1000 ML 1,000 ML IV SCH ×3 (00:39→19:02)
[2021-09-08] MEDS: PIPERACIL/TAZOBACTA 4.5/NS 100 4.5 GM/100 ML VIAL IV SCH ×3 (02:25→19:00)
[2021-09-08] MEDS: MORPHINE 4 MG/1 ML INJ IV PRN (03:25)
[2021-09-08 05:10] LABS: Basophils % (Auto) 0.3 % (0.0-1.8); Eosinophils % (Auto) 0.6 % (0.0-4.3); Hematocrit 41.5 % (35.5-45.6); Hemoglobin 13.3 gm/dl (11.8-15.2); Lymphocytes # (Auto) 1.2 K/mm3 (1.2-5.4); Lymphocytes % (Auto) 16.7 % (13.4-35.0); Mean Corpuscular HGB Conc 32 % (32-34); Mean Corpuscular Volume 93 fl (84-94); Monocytes # (Auto) 0.9 K/mm3 (0.0-0.8); Monocytes % (Auto) 12.2 % (0.0-7.3); Platelet Count 504 K/mm3 (140-440); Red Blood Count 4.48 M/mm3 (3.65-5.03); Red Cell Distribution Width 16.7 % (13.2-15.2)
[2021-09-08 05:22] LABS: Blood Urea Nitrogen 5 mg/dL (9-20); Calcium 8.8 mg/dL (8.4-10.2); Hemolysis Index 7
[2021-09-08 05:58] LABS: BUN/Creatinine Ratio 7
[2021-09-08] MEDS: hydrALAZINE 20 MG/1 ML INJ IV PRN ×2 (06:54→18:58)
--- NOTE | 2021-09-08 11:13 | Progress Note ---
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 Patient states that he initially thought that he was constipated and took laxatives and he had bowel movement for 2 days and thereafter he was unable to have a bowel movement. Patient stated that he had not had a bowel movement in 5 days and that the pain worsened the last [address]ELOPMENT [address]NAGER[address] scan of the abdomen pelvis revealed a large 12 cm abscess in the right abdomen with extensive mural thickening and inflammation of the ascending colon/cecum. Findings suggestive of acute appendicitis with large abscess and contained perforation and reactive colitis. Also, bilateral adrenal nodules Acute appendicitis Appendiceal abscess Acute colitis Bilateral adrenal nodules. 2.4 cm on the right and up to 1.2 cm on the left Accelerated hypertension 09/06/2021. General surgery consulted and likely to perform appendectomy. Continue IV antibiotics and monitor closely. We will start IV hydralazine given n.p.o. status. Patient will also need further work-up given the hypertension and bilateral adrenal nodules with CT contrast adrenal mass protocol. 09/07/2021. Patient reportedly had planned placement for right lower quadrant catheter for drainage of abscess. However, apparently there were no CT techs available. 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 The patient will have r a CT guided drainage and catheter placement for abscess today. Continue IV antibiotics and consult ID for further evaluation. Patient will need outpatient follow-up for adrenal nodules. 09/08/2021. Patient underwent CT-guided drainage yesterday. We will continue antibiotics and supportive care. Continue clear liquids through the weekend. Patient will need repeat CT scan in 3-5 days to evaluate collection. Patient will need outpatient follow-up for adrenal nodules. History Interval history: No new issues overnight Hospitalist Physical - Constitutional Vitals: Temp Pulse Resp BP Pulse Ox 98.2 F 65 18 173/97 96 09/08/21 06:50 09/08/21 06:51 09/08/21 06:50 09/08/21 06:54 09/08/21 06:51 General appearance: Present: no acute distress, well-nourished - EENT Eyes: Present: PERRL, EOM intact ENT: hearing intact, clear oral mucosa, dentition normal - Neck Neck: Present: supple, normal ROM - Respiratory Respiratory effort: normal Respiratory: bilateral: CTA - Cardiovascular Rhythm: regular Heart Sounds: Present: S1 & S2. Absent: gallop, rub - Extremities Extremities: no ischemia, No edema, Full ROM - Abdominal General gastrointestinal: soft, non-tender, non-distended, normal bowel sounds - Integumentary Integumentary: Present: clear, warm, dry - Neurologic Neurologic: CNII-XII intact, moves all extremities Results - Labs CBC & Chem 7: 09/08/21 03:21 09/08/21 03:21 Labs: Laboratory Last Values WBC 7.1 K/mm3 (4.5-11.0) 09/08/21 03:21 RBC 4.48 M/mm3 (3.65-5.03) 09/08/21 03:21 Hgb 13.3 gm/dl (11.8-15.2) 09/08/21 03:21 Hct 41.5 % (35.5-45.6) 09/08/21 03:21 MCV 93 fl (84-94) 09/08/21 03:21 MCH 30 pg (28-32) 09/08/21 03:21 MCHC 32 % (32-34) 09/08/21 03:21 RDW 16.7 % (13.2-15.2) H 09/08/21 03:21 Plt Count 504 K/mm3 (140-440) H 09/08/21 03:21 Lymph % (Auto) 16.7 % (13.4-35.0) 09/08/21 03:21 [place] % (Auto) 12.2 % (0.0-7.3) H 09/08/21 03:21 Eos % (Auto) 0.6 % (0.0-4.3) 09/08/21 03:21 Baso % (Auto) 0.3 % (0.0-1.8) 09/08/21 03:21 Lymph # (Auto) 1.2 K/mm3 (1.2-5.4) 09/08/21 03:21 [place] # (Auto) 0.9 K/mm3 (0.0-0.8) H 09/08/21 03:21 Eos # (Auto) 0.0 K/mm3 (0.0-0.4) 09/08/21 03:21 Baso # (Auto) 0.0 K/mm3 (0.0-0.1) 09/08/21 03:21 Seg Neutrophils % 70.2 % (40.0-70.0) H 09/08/21 03:21 Seg Neutrophils # 5.0 K/mm3 (1.8-7.7) 09/08/21 03:21 Sodium 140 mmol/L (137-145) 09/08/21 03:21 Potassium 3.4 mmol/L (3.6-5.0) L 09/08/21 03:21 Chloride 101.9 mmol/L (98-107) 09/08/21 03:21 Carbon Dioxide 24 mmol/L (22-30) 09/08/21 03:21 Anion Gap 18 mmol/L 09/08/21 03:21 BUN 5 mg/dL (9-20) L 09/08/21 03:21 Creatinine 0.7 mg/dL (0.8-1.3) L 09/08/21 03:21 Estimated GFR > 60 ml/min 09/08/21 03:21 BUN/Creatinine Ratio 7 % 09/08/21 03:21 Glucose 86 mg/dL (75-100) 09/08/21 03:21 Calcium 8.8 mg/dL (8.4-10.2) 09/08/21 03:21 Total Bilirubin 0.50 mg/dL (0.1-1.2) 09/05/21 22:01 AST 25 units/L (5-40) 09/05/21 22:01 ALT 25 units/L (7-56) 09/05/21 22:01 Alkaline Phosphatase 108 units/L (35-129) 09/05/21 22:01 Total Protein 9.2 g/dL (6.3-8.2) H 09/05/21 22:01 Albumin 3.6 g/dL (3.9-5) L 09/05/21 22:01 Albumin/Globulin Ratio 0.6 % 09/05/21 22:01 Lipase 7 units/L (13-60) L 09/05/21 22:01 Urine Color Kristy (Yellow) 09/05/21 Unknown Urine Turbidity Clear (Clear) 09/05/21 Unknown Urine pH 6.0 (5.0-7.0) 09/05/21 Unknown Ur Specific [place] 1.025 (1.003-1.030) 09/05/21 Unknown Urine Protein 30 mg/dl mg/dL (Negative) 09/05/21 Unknown Urine Glucose (UA) Negative mg/dL (Negative) 09/05/21 Unknown Urine Ketones 5 mg/dL (Negative) 09/05/21 Unknown Urine Blood Trace (Negative) 09/05/21 Unknown Urine Nitrite Negative (Negative) 09/05/21 Unknown Ur Reducing Substances Not Reportable 09/05/21 Unknown Urine Bilirubin Small (Negative) 09/05/21 Unknown Urine Ictotest Positive (Negative) 09/05/21 Unknown Urine Urobilinogen 2.0 mg/dL (<2.0) 09/05/21 Unknown Ur Leukocyte Esterase Negative (Negative) 09/05/21 Unknown Urine WBC (Auto) 3.0 /HPF (0.0-6.0) 09/05/21 Unknown Urine RBC (Auto) 9.0 /HPF (0.0-6.0) 09/05/21 Unknown U Epithel Cells (Auto) 1.0 /HPF (0-13.0) 09/05/21 Unknown Hyaline Casts 5 /LPF 09/05/21 Unknown Urine Mucus 3+ /HPF 09/05/21 Unknown Microbiology: Microbiology 09/07/21 17:37 Peripheral/Venous Blood Culture - Preliminary Culture in Progress 09/07/21 17:37 Peripheral/Venous Blood Culture - Preliminary Culture in Progress [place]/IV: Voiding Method Urinal Active Medications - Current Medications Current Medications: Generic Name Dose Route Start Last Admin Trade Name Freq PRN Reason Stop Dose Admin Acetaminophen 650 mg 09/06/21 03:08 09/06/21 22:19 Acetaminophen 325 Mg Tab PO 650 mg Q4H PRN Administration Pain MILD(1-3)/Fever >100.5/DURAND Hydralazine HCl 20 mg 09/06/21 11:06 09/08/21 06:54 Hydralazine 20 Mg/1 Ml Inj IV 20 mg Q4HR PRN Administration Blood Pressure Sodium Chloride 1,000 mls @ 125 mls/hr 09/06/21 03:15 09/08/21 09:30 Nacl 0.9% 1000 Ml IV 125 mls/hr DIRECT ERICH Administration Piperacillin Sod/Tazobactam Sod 4.5 gm in 100 mls @ 200 mls/hr 09/06/21 10:00 09/08/21 09:29 Zosyn/Ns 4.5gm/100ml IV 200 mls/hr Q8H ERICH Administration Protocol Magnesium Hydroxide 30 ml 09/06/21 03:08 Magnesium Hydroxide (Mom) Oral Liqd Udc PO Q4H PRN Constipation Morphine Sulfate 2 mg 09/06/21 03:08 09/07/21 15:31 Morphine 2 Mg/1 Ml Inj IV 2 mg Q4H PRN Administration Pain, Moderate (4-6) Morphine Sulfate 4 mg 09/06/21 03:08 09/08/21 03:25 Morphine 4 Mg/1 Ml Inj IV 4 mg Q4H PRN Administration Pain , Severe (7-10) Ondansetron HCl 4 mg 09/06/21 03:08 09/06/21 07:29 Ondansetron 4 Mg/2 Ml Inj IV 4 mg Q8H PRN Administration Nausea And Vomiting Sodium Chloride 10 ml 09/06/21 10:00 09/07/21 22:24 Sodium Chloride 0.9% 10 Ml Flush Syringe IV 10 ml BID ERICH Administration Sodium Chloride 10 ml 09/06/21 03:33 Sodium Chloride 0.9% 10 Ml Flush Syringe IV PRN PRN LINE FLUSH
--- NOTE | 2021-09-08 14:02 | Progress Note ---
Assessment and Plan 56-year-old male with large right lower quadrant fluid collection consistent with abscess. Possibly due to remote perforation of appendix. Patient is afebrile and stable with resolved leukocytosis, status post CT-guided drainage. Recommendations: 1. continue abx and supportive care 2. keep on clear liquids through the weekend 3. per IR repeat CT in 3-5 days to evaluate collection s/p drainage Subjective Date of service: 09/08/21 Narrative: No acute events overnight. Pt says he feels about the same as yesterday. Not bad, and tolerating liquids. Objective Vital Signs - 12hr 09/08/21 09/08/21 09/08/21 06:50 06:51 06:54 Temperature 98.2 F Pulse Rate 65 Respiratory 18 Rate Blood Pressure 173/97 173/97 O2 Sat by Pulse 96 Oximetry - General physical appearance well developed, no distress, no pain - Eyes PERRL - ENT no hearing loss - Respiratory normal expansion, normal respiratory effort - Abdomen soft, not distended, other (drain with dark brown malodorous fluid, mild tenderness to palpation to deep palpation RLQ) - Labs 09/08/21 03:21 09/08/21 03:21 Diabetes panel 09/08/21 Range/Units 03:21 Sodium 140 (137-145) mmol/L Potassium 3.4 L (3.6-5.0) mmol/L Chloride 101.9 (98-107) mmol/L Carbon Dioxide 24 (22-30) mmol/L BUN 5 L (9-20) mg/dL Creatinine 0.7 L (0.8-1.3) mg/dL Glucose 86 (75-100) mg/dL Calcium 8.8 (8.4-10.2) mg/dL Calcium panel 09/08/21 Range/Units 03:21 Calcium 8.8 (8.4-10.2) mg/dL Pituitary panel 09/08/21 Range/Units 03:21 Sodium 140 (137-145) mmol/L Potassium 3.4 L (3.6-5.0) mmol/L Chloride 101.9 (98-107) mmol/L Carbon Dioxide 24 (22-30) mmol/L BUN 5 L (9-20) mg/dL Creatinine 0.7 L (0.8-1.3) mg/dL Glucose 86 (75-100) mg/dL Calcium 8.8 (8.4-10.2) mg/dL Adrenal panel 09/08/21 Range/Units 03:21 Sodium 140 (137-145) mmol/L Potassium 3.4 L (3.6-5.0) mmol/L Chloride 101.9 (98-107) mmol/L Carbon Dioxide 24 (22-30) mmol/L BUN 5 L (9-20) mg/dL Creatinine 0.7 L (0.8-1.3) mg/dL Glucose 86 (75-100) mg/dL Calcium 8.8 (8.4-10.2) mg/dL
[2021-09-09] MEDS: PIPERACIL/TAZOBACTA 4.5/NS 100 4.5 GM/100 ML VIAL IV SCH ×3 (01:40→18:54)
[2021-09-09 05:06] LABS: Basophils % (Auto) 0.7 % (0.0-1.8); Eosinophils # (Auto) 0.1 K/mm3 (0.0-0.4); Eosinophils % (Auto) 1.8 % (0.0-4.3); Hematocrit 40.1 % (35.5-45.6); Lymphocytes # (Auto) 1.3 K/mm3 (1.2-5.4); Lymphocytes % (Auto) 22.5 % (13.4-35.0); Mean Corpuscular HGB Conc 33 % (32-34); Mean Corpuscular Volume 92 fl (84-94); Monocytes # (Auto) 0.8 K/mm3 (0.0-0.8); Monocytes % (Auto) 12.7 % (0.0-7.3); Platelet Count 515 K/mm3 (140-440); Red Blood Count 4.37 M/mm3 (3.65-5.03); Red Cell Distribution Width 16.6 % (13.2-15.2)
[2021-09-09 05:19] LABS: Blood Urea Nitrogen 5 mg/dL (9-20); Calcium 8.6 mg/dL (8.4-10.2); Hemolysis Index 8
[2021-09-09 05:21] LABS: BUN/Creatinine Ratio 7
[2021-09-09] MEDS: MORPHINE 4 MG/1 ML INJ IV PRN (05:39)
[2021-09-09] MEDS: hydrALAZINE 20 MG/1 ML INJ IV PRN (05:39)
--- NOTE | 2021-09-09 09:31 | Cat Scan Report ---
CT DRAIN CYST/ABSCESS HISTORY: Right lower quadrant abscess Comment: This examination was performed by Dr. Butcher of interventional radiology. A percutaneous drain was placed in a large right lower quadrant abscess. Please refer to Dr. Butcher's formal report. Signer Name: Donte Cox Jr, MD Signed: 09/09/2021 9:26 AM Workstation Name: [id number]
--- NOTE | 2021-09-09 09:58 | Progress Note ---
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 Patient states that he initially thought that he was constipated and took laxatives and he had bowel movement for 2 days and thereafter he was unable to have a bowel movement. Patient stated that he had not had a bowel movement in 5 days and that the pain worsened the last [address] scan of the abdomen pelvis revealed a large 12 cm abscess in the right abdomen with extensive mural thickening and inflammation of the ascending colon/cecum. Findings suggestive of acute appendicitis with large abscess and contained perforation and reactive colitis. Also, bilateral adrenal nodules Acute appendicitis Appendiceal abscess Acute colitis Bilateral adrenal nodules. 2.4 cm on the right and up to 1.2 cm on the left Accelerated hypertension 09/06/2021. General surgery consulted and likely to perform appendectomy. Continue IV antibiotics and monitor closely. We will start IV hydralazine given n.p.o. status. Patient will also need further work-up given the hypertension and bilateral adrenal nodules with CT contrast adrenal mass protocol. 09/07/2021. Patient reportedly had planned placement for right lower quadrant catheter for drainage of abscess. However, apparently there were no CT techs available. Also, IR reported plans on attempting ultrasound-guided access in the Service Station Console Operator however, low staffing prevents this from being performed yesterday. The patient will have r a CT guided drainage and catheter placement for abscess today. Continue IV antibiotics and consult ID for further evaluation. Patient will need outpatient follow-up for adrenal nodules. 09/08/2021. Patient underwent CT-guided drainage yesterday. We will continue antibiotics and supportive care. Continue clear liquids through the weekend. Patient will need repeat CT scan in 3-5 days to evaluate collection. Patient will need outpatient follow-up for adrenal nodules. 09/09/2021. Continue IV antibiotics and supportive care. Repeat CT scan in the next 1 to 2 days per IR recommendations. Patient will need outpatient follow-up for adrenal nodules to rule out secondary hypertension. History Interval history: No new issues overnight Hospitalist Physical - Constitutional Vitals: Temp Pulse Resp BP Pulse Ox 97.7 F 69 18 173/91 96 09/09/21 05:34 09/09/21 05:34 09/09/21 05:34 09/09/21 05:39 09/09/21 05:34 General appearance: Present: no acute distress, well-nourished - EENT Eyes: Present: PERRL, EOM intact ENT: hearing intact, clear oral mucosa, dentition normal - Neck Neck: Present: supple, normal ROM - Respiratory Respiratory effort: normal Respiratory: bilateral: CTA - Cardiovascular Rhythm: regular Heart Sounds: Present: S1 & S2. Absent: gallop, rub - Extremities Extremities: no ischemia, No edema, Full ROM - Abdominal General gastrointestinal: soft, non-tender, non-distended, normal bowel sounds - Integumentary Integumentary: Present: clear, warm, dry - Neurologic Neurologic: CNII-XII intact, moves all extremities Results - Labs CBC & Chem 7: 09/09/21 03:59 09/09/21 03:59 Labs: Laboratory Last Values WBC 6.0 K/mm3 (4.5-11.0) 09/09/21 03:59 RBC 4.37 M/mm3 (3.65-5.03) 09/09/21 03:59 Hgb 13.0 gm/dl (11.8-15.2) 09/09/21 03:59 Hct 40.1 % (35.5-45.6) 09/09/21 03:59 MCV 92 fl (84-94) 09/09/21 03:59 MCH 30 pg (28-32) 09/09/21 03:59 MCHC 33 % (32-34) 09/09/21 03:59 RDW 16.6 % (13.2-15.2) H 09/09/21 03:59 Plt Count 515 K/mm3 (140-440) H 09/09/21 03:59 Lymph % (Auto) 22.5 % (13.4-35.0) 09/09/21 03:59 [place] % (Auto) 12.7 % (0.0-7.3) H 09/09/21 03:59 Eos % (Auto) 1.8 % (0.0-4.3) 09/09/21 03:59 Baso % (Auto) 0.7 % (0.0-1.8) 09/09/21 03:59 Lymph # (Auto) 1.3 K/mm3 (1.2-5.4) 09/09/21 03:59 [place] # (Auto) 0.8 K/mm3 (0.0-0.8) 09/09/21 03:59 Eos # (Auto) 0.1 K/mm3 (0.0-0.4) 09/09/21 03:59 Baso # (Auto) 0.0 K/mm3 (0.0-0.1) 09/09/21 03:59 Seg Neutrophils % 62.3 % (40.0-70.0) 09/09/21 03:59 Seg Neutrophils # 3.7 K/mm3 (1.8-7.7) 09/09/21 03:59 Sodium 137 mmol/L (137-145) 09/09/21 03:59 Potassium 3.1 mmol/L (3.6-5.0) L 09/09/21 03:59 Chloride 101.4 mmol/L (98-107) 09/09/21 03:59 Carbon Dioxide 25 mmol/L (22-30) 09/09/21 03:59 Anion Gap 14 mmol/L 09/09/21 03:59 BUN 5 mg/dL (9-20) L 09/09/21 03:59 Creatinine 0.7 mg/dL (0.8-1.3) L 09/09/21 03:59 Estimated GFR > 60 ml/min 09/09/21 03:59 BUN/Creatinine Ratio 7 % 09/09/21 03:59 Glucose 99 mg/dL (75-100) 09/09/21 03:59 Calcium 8.6 mg/dL (8.4-10.2) 09/09/21 03:59 Total Bilirubin 0.50 mg/dL (0.1-1.2) 09/05/21 22:01 AST 25 units/L (5-40) 09/05/21 22:01 ALT 25 units/L (7-56) 09/05/21 22:01 Alkaline Phosphatase 108 units/L (35-129) 09/05/21 22:01 Total Protein 9.2 g/dL (6.3-8.2) H 09/05/21 22:01 Albumin 3.6 g/dL (3.9-5) L 09/05/21 22:01 Albumin/Globulin Ratio 0.6 % 09/05/21 22:01 Lipase 7 units/L (13-60) L 09/05/21 22:01 Urine Color Kristy (Yellow) 09/05/21 Unknown Urine Turbidity Clear (Clear) 09/05/21 Unknown Urine pH 6.0 (5.0-7.0) 09/05/21 Unknown Ur Specific [place] 1.025 (1.003-1.030) 09/05/21 Unknown Urine Protein 30 mg/dl mg/dL (Negative) 09/05/21 Unknown Urine Glucose (UA) Negative mg/dL (Negative) 09/05/21 Unknown Urine Ketones 5 mg/dL (Negative) 09/05/21 Unknown Urine Blood Trace (Negative) 09/05/21 Unknown Urine Nitrite Negative (Negative) 09/05/21 Unknown Ur Reducing Substances Not Reportable 09/05/21 Unknown Urine Bilirubin Small (Negative) 09/05/21 Unknown Urine Ictotest Positive (Negative) 09/05/21 Unknown Urine Urobilinogen 2.0 mg/dL (<2.0) 09/05/21 Unknown Ur Leukocyte Esterase Negative (Negative) 09/05/21 Unknown Urine WBC (Auto) 3.0 /HPF (0.0-6.0) 09/05/21 Unknown Urine RBC (Auto) 9.0 /HPF (0.0-6.0) 09/05/21 Unknown U Epithel Cells (Auto) 1.0 /HPF (0-13.0) 09/05/21 Unknown Hyaline Casts 5 /LPF 09/05/21 Unknown Urine Mucus 3+ /HPF 09/05/21 Unknown Microbiology: Microbiology 09/07/21 17:37 Peripheral/Venous Blood Culture - Preliminary NO GROWTH AFTER 24 HOURS 09/07/21 17:37 Peripheral/Venous Blood Culture - Preliminary NO GROWTH AFTER 24 HOURS [place]/IV: Voiding Method Urinal Active Medications - Current Medications Current Medications: Generic Name Dose Route Start Last Admin Trade Name Freq PRN Reason Stop Dose Admin Acetaminophen 650 mg 09/06/21 03:08 09/06/21 22:19 Acetaminophen 325 Mg Tab PO 650 mg Q4H PRN Administration Pain MILD(1-3)/Fever >100.5/DURAND Hydralazine HCl 20 mg 09/06/21 11:06 09/09/21 05:39 Hydralazine 20 Mg/1 Ml Inj IV 20 mg Q4HR PRN Administration Blood Pressure Sodium Chloride 1,000 mls @ 125 mls/hr 09/06/21 03:15 09/08/21 19:02 Nacl 0.9% 1000 Ml IV 125 mls/hr DIRECT ERICH Administration Piperacillin Sod/Tazobactam Sod 4.5 gm in 100 mls @ 200 mls/hr 09/06/21 10:00 09/09/21 01:40 Zosyn/Ns 4.5gm/100ml IV 200 mls/hr Q8H ERICH Administration Protocol Magnesium Hydroxide 30 ml 09/06/21 03:08 Magnesium Hydroxide (Mom) Oral Liqd Udc PO Q4H PRN Constipation Morphine Sulfate 2 mg 09/06/21 03:08 09/07/21 15:31 Morphine 2 Mg/1 Ml Inj IV 2 mg Q4H PRN Administration Pain, Moderate (4-6) Morphine Sulfate 4 mg 09/06/21 03:08 09/09/21 05:39 Morphine 4 Mg/1 Ml Inj IV 4 mg Q4H PRN Administration Pain , Severe (7-10) Ondansetron HCl 4 mg 09/06/21 03:08 09/06/21 07:29 Ondansetron 4 Mg/2 Ml Inj IV 4 mg Q8H PRN Administration Nausea And Vomiting Sodium Chloride 10 ml 09/06/21 10:00 09/09/21 09:56 Sodium Chloride 0.9% 10 Ml Flush Syringe IV Not Given BID ERICH Sodium Chloride 10 ml 09/06/21 03:33 Sodium Chloride 0.9% 10 Ml Flush Syringe IV PRN PRN LINE FLUSH
--- NOTE | 2021-09-09 11:24 | Consultation ---
History of Present Illness - Reason for Consult Consult date: 09/09/21 RLQ abscess Requesting physician: ARELIS SNELL - History of Present Illness The patient is a 56-year-old male with hypertension admitted with abdominal pain with CT evidence of a large 12 cm abscess in the right abdomen with extensive mural thickening and inflammation of the ascending colon/cecum. Appendix was not identified, findings may reflect acute appendicitis with large abscess, contained perforation and reactive colitis. Patient was seen by interventional radiology, on 09/07/2021, underwent CT-guided drain placement, about 90 cc of purulent material was drained and sent for culture. ID was consulted for antibiotic management. Patient has been afebrile. Review of Systems: Per HPI Past History Past Medical History: hypertension Past Surgical History: No surgical history Social history: no significant social history Family history: no significant family history Medications and Allergies Allergies Allergy/AdvReac Type Severity Reaction Status Date / Time No Known Allergies Allergy Verified 09/05/21 21:54 Home Medications Medication Instructions Recorded Confirmed Last Taken Type No Known Home Medications [No 09/06/21 09/06/21 Unknown History Reported Home Medications] Active Meds: Active Medications Acetaminophen (Acetaminophen 325 Mg Tab) 650 mg PO Q4H PRN PRN Reason: Pain MILD(1-3)/Fever >100.5/DURAND Last Admin: 09/06/21 22:19 Dose: 650 mg Hydralazine HCl (Hydralazine 20 Mg/1 Ml Inj) 20 mg IV Q4HR PRN PRN Reason: Blood Pressure Last Admin: 09/09/21 05:39 Dose: 20 mg Sodium Chloride (Nacl 0.9% 1000 Ml) 1,000 mls @ 125 mls/hr IV DIRECT ERICH Last Admin: 09/08/21 19:02 Dose: 125 mls/hr Piperacillin Sod/Tazobactam Sod (Zosyn/Ns 4.5gm/100ml) 4.5 gm in 100 mls @ 200 mls/hr IV Q8H ERICH; Protocol Last Admin: 09/09/21 01:40 Dose: 200 mls/hr Magnesium Hydroxide (Magnesium Hydroxide (Mom) Oral Liqd Udc) 30 ml PO Q4H PRN PRN Reason: Constipation Morphine Sulfate (Morphine 2 Mg/1 Ml Inj) 2 mg IV Q4H PRN PRN Reason: Pain, Moderate (4-6) Last Admin: 09/07/21 15:31 Dose: 2 mg Morphine Sulfate (Morphine 4 Mg/1 Ml Inj) 4 mg IV Q4H PRN PRN Reason: Pain , Severe (7-10) Last Admin: 09/09/21 05:39 Dose: 4 mg Ondansetron HCl (Ondansetron 4 Mg/2 Ml Inj) 4 mg IV Q8H PRN PRN Reason: Nausea And Vomiting Last Admin: 09/06/21 07:29 Dose: 4 mg Sodium Chloride (Sodium Chloride 0.9% 10 Ml Flush Syringe) 10 ml IV BID ERICH Last Admin: 09/09/21 09:56 Dose: Not Given Sodium Chloride (Sodium Chloride 0.9% 10 Ml Flush Syringe) 10 ml IV PRN PRN PRN Reason: LINE FLUSH Physical Examination - Physical Exam Narrative exam: Physical Exam: Constitutional: Alert, cooperative. No acute distress Head, Ears, Nose: Normocephalic, atraumatic. External ears, nose normal Eyes: Conjunctivae/corneas clear. No icterus. No ptosis. Neck: Supple, no meningeal signs Cardiovascular: S1, S2 + Respiratory: Good air entry, clear to auscultation bilaterally GI: Soft, non-tender; bowel sounds normal. No peritoneal signs. Drain + Musculoskeletal: No pedal edema, no cyanosis. Skin: No rash or abscess Hem/Lymphatic: No palpable cervical or supraclavicular nodes. No lymphangitis Psych: Mood ok. Affect normal Neurological: Awake, alert, oriented. No gross abnormality - Constitutional Vitals: Vital Signs Temp Pulse Resp BP Pulse Ox 97.7 F 69 18 173/91 96 09/09/21 05:34 09/09/21 05:34 09/09/21 05:34 09/09/21 05:39 09/09/21 05:34 Temperature -Last 24 Hours Temperature 97.7 F Temperature 98.8 F Temperature 98.2 F Temperature 98.7 F Results - Labs CBC & Chem 7: 09/09/21 03:59 09/09/21 03:59 Labs: Abnormal lab results 09/09/21 09/09/21 Range/Units 03:59 03:59 RDW 16.6 H (13.2-15.2) % Plt Count 515 H (140-440) K/mm3 [place] % (Auto) 12.7 H (0.0-7.3) % Potassium 3.1 L (3.6-5.0) mmol/L BUN 5 L (9-20) mg/dL Creatinine 0.7 L (0.8-1.3) mg/dL Assessment and Plan Cultures: 09/07/2021 blood culture: No growth 09/07/2021 IR drainage culture: Pending A/P: 56/M with HTN: #RLQ abscess, likely secondary to acute appendicitis with perforation: Status post CT-guided drainage by IR on 09/07/2021 #Reactive thrombocytosis #Leukocytosis, resolved Recs: -Continue IV Zosyn -Noted plans for re-imaging Russell Almendarez MD, FACP, [facility] ([facility] O: [phone] F: [phone] C: [phone]
--- NOTE | 2021-09-09 14:51 | Progress Note ---
Subjective Date of service: 09/09/21 Interval history: Status post drainage of right lower quadrant fluid collection. Large amount of output over the last few days. Original CT demonstrated a large amount of gas within the collection. 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 Discussed situation with patient who understands. Discussed keeping accordion compressed. Set up for contrast CT tomorrow with IV and oral contrast. Discussed with Dr. Longo. Objective - Constitutional Vitals: Vital Signs - 12hr 09/09/21 09/09/21 09/09/21 05:34 05:39 09:15 Temperature 97.7 F Pulse Rate 69 Respiratory 18 Rate Blood Pressure 173/91 173/91 O2 Sat by Pulse 96 96 Oximetry - Labs CBC & Chem 7: 09/09/21 03:59 09/09/21 03:59 Labs: Abnormal lab results 09/09/21 09/09/21 Range/Units 03:59 03:59 RDW 16.6 H (13.2-15.2) % Plt Count 515 H (140-440) K/mm3 [place] % (Auto) 12.7 H (0.0-7.3) % Potassium 3.1 L (3.6-5.0) mmol/L BUN 5 L (9-20) mg/dL Creatinine 0.7 L (0.8-1.3) mg/dL Medications & Allergies - Medications Allergies/Adverse Reactions: Allergies No Known Allergies Allergy (Verified 09/05/21 21:54) Home Medications: Home Medications Medication Instructions Recorded Confirmed Last Taken Type No Known Home Medications [No 09/06/21 09/06/21 Unknown History Reported Home Medications] Active Medications: Generic Name Dose Route Start Last Admin Trade Name Freq PRN Reason Stop Dose Admin Acetaminophen 650 mg 09/06/21 03:08 09/06/21 22:19 Acetaminophen 325 Mg Tab PO 650 mg Q4H PRN Administration Pain MILD(1-3)/Fever >100.5/DURAND Hydralazine HCl 20 mg 09/06/21 11:06 09/09/21 05:39 Hydralazine 20 Mg/1 Ml Inj IV 20 mg Q4HR PRN Administration Blood Pressure Sodium Chloride 1,000 mls @ 125 mls/hr 09/06/21 03:15 09/08/21 19:02 Nacl 0.9% 1000 Ml IV 125 mls/hr DIRECT ERICH Administration Piperacillin Sod/Tazobactam Sod 4.5 gm in 100 mls @ 200 mls/hr 09/06/21 10:00 09/09/21 11:52 Zosyn/Ns 4.5gm/100ml IV 200 mls/hr Q8H ERICH Administration Protocol Magnesium Hydroxide 30 ml 09/06/21 03:08 Magnesium Hydroxide (Mom) Oral Liqd Udc PO Q4H PRN Constipation Morphine Sulfate 2 mg 09/06/21 03:08 09/07/21 15:31 Morphine 2 Mg/1 Ml Inj IV 2 mg Q4H PRN Administration Pain, Moderate (4-6) Morphine Sulfate 4 mg 09/06/21 03:08 09/09/21 05:39 Morphine 4 Mg/1 Ml Inj IV 4 mg Q4H PRN Administration Pain , Severe (7-10) Ondansetron HCl 4 mg 09/06/21 03:08 09/06/21 07:29 Ondansetron 4 Mg/2 Ml Inj IV 4 mg Q8H PRN Administration Nausea And Vomiting Sodium Chloride 10 ml 09/06/21 10:00 09/09/21 09:56 Sodium Chloride 0.9% 10 Ml Flush Syringe IV Not Given BID ERICH Sodium Chloride 10 ml 09/06/21 03:33 Sodium Chloride 0.9% 10 Ml Flush Syringe IV PRN PRN LINE FLUSH
[2021-09-09] MEDS: SODIUM CHLORIDE 0.9% 1000 ML 1,000 ML IV SCH (15:54)
--- NOTE | 2021-09-09 17:06 | Progress Note ---
Assessment and Plan 56 yo with 12 cm retrocecal fluid/abscess and air. He is more comfortable than would be expected from the CT images. WBC 15,000. Case discussed with Dr. Butcher. Agree with plans for CT scan with contrast tomorrow. Continue clear liquids at this time. Follow-up CEA level. Subjective Date of service: 09/09/21 Patient Reports: Positive: no new complaints, feels better, tolerating liquids well Narrative: Case discussed with Dr. Butcher. Agree with plans for CT scan with contrast tomorrow. Continue clear liquids at this time. Follow-up CEA level. Objective Vital Signs - 12hr 09/09/21 09/09/21 09/09/21 05:34 05:39 09:15 Temperature 97.7 F Pulse Rate 69 Respiratory 18 Rate Blood Pressure 173/91 173/91 O2 Sat by Pulse 96 96 Oximetry - Labs 09/09/21 03:59 09/09/21 03:59 Diabetes panel 09/09/21 Range/Units 03:59 Sodium 137 (137-145) mmol/L Potassium 3.1 L (3.6-5.0) mmol/L Chloride 101.4 (98-107) mmol/L Carbon Dioxide 25 (22-30) mmol/L BUN 5 L (9-20) mg/dL Creatinine 0.7 L (0.8-1.3) mg/dL Glucose 99 (75-100) mg/dL Calcium 8.6 (8.4-10.2) mg/dL Calcium panel 09/09/21 Range/Units 03:59 Calcium 8.6 (8.4-10.2) mg/dL Pituitary panel 09/09/21 Range/Units 03:59 Sodium 137 (137-145) mmol/L Potassium 3.1 L (3.6-5.0) mmol/L Chloride 101.4 (98-107) mmol/L Carbon Dioxide 25 (22-30) mmol/L BUN 5 L (9-20) mg/dL Creatinine 0.7 L (0.8-1.3) mg/dL Glucose 99 (75-100) mg/dL Calcium 8.6 (8.4-10.2) mg/dL Adrenal panel 09/09/21 Range/Units 03:59 Sodium 137 (137-145) mmol/L Potassium 3.1 L (3.6-5.0) mmol/L Chloride 101.4 (98-107) mmol/L Carbon Dioxide 25 (22-30) mmol/L BUN 5 L (9-20) mg/dL Creatinine 0.7 L (0.8-1.3) mg/dL Glucose 99 (75-100) mg/dL Calcium 8.6 (8.4-10.2) mg/dL
[2021-09-09] MEDS ORDERED: amLODIPine 5 MG TAB PO SCH (18:59)
[2021-09-10] MEDS: PIPERACIL/TAZOBACTA 4.5/NS 100 4.5 GM/100 ML VIAL IV SCH ×3 (02:02→18:44)
[2021-09-10 07:04] LABS: Blood Urea Nitrogen 3 mg/dL (9-20); Calcium 8.7 mg/dL (8.4-10.2); Hemolysis Index 3
[2021-09-10 07:07] LABS: BUN/Creatinine Ratio 4
[2021-09-10] MEDS: hydrALAZINE 20 MG/1 ML INJ IV PRN (07:47)
[2021-09-10] MEDS ORDERED: amLODIPine 5 MG TAB PO SCH (07:56)
[2021-09-10] MEDS ORDERED: POTASSIUM CHLORIDE ER 20 MEQ TAB PO NR (08:30)
--- NOTE | 2021-09-10 09:08 | Cat Scan Report ---
CT ABDOMEN AND PELVIS WITH CONTRAST HISTORY: fistula cavity, oral and IV contrast. Right lower quadrant abscess status post drain placem ent. COMPARISON: 09/07/2021. 09/06/2021. TECHNIQUE: Helical CT images of the abdomen and pelvis were obtained following administration of intr avenous contrast. Sagittal and coronal reformatted images were reviewed. All CT scans at [facility] are performed using CT dose reduction for ALARA by means of automated exposure control. CONTRAST: Omnipaque 300 100 ml of intravenous contrast administered. Oral contrast was also administe red. FINDINGS: Abdomen/pelvis: Right lower quadrant percutaneous drain appears in good position with near complete evacuation of the previously described large right lower quadrant abscess. Trace gas and fluid remain surrounding the catheter. There is also trace oral contrast surrounding the drain suggesting a small amount of extravasation. There is moderate circumferential thickening of the proximal colon and term inal small bowel which is likely reactive in nature. No clear GI mass is demonstrated. No convincing fistulous tract is detected. There is suggestion of a prominent appendix adjacent to the drain best a ppreciated on image 112, series 2. These findings suggest previous rupture of the appendix. The remai daphne bowel loops are unremarkable. Mild diverticulosis of the distal colon is again noted. The liver, biliary system, pancreas, spleen, kidneys and left adrenal gland are unremarkable. Stable 2.2 cm right adrenal hypodense nodule which probably represents an adenoma. The vascular structures a re patent. There is trace pelvic ascites. The bladder is unremarkable. Small umbilical hernia contain ing fat is unchanged. Lungs/bones: Trace to small bilateral layering pleural effusions are identified. The lung bases are otherwise clear. Heart size is normal. No acute osseous abnormality. Mild thoracolumbar spondylosis i s stable. IMPRESSION: Near complete evacuation of the right lower quadrant abscess is demonstrated. See above. Trace to small bilateral pleural effusions. Trace pelvic ascites. Other incidental findings as described. Signer Name: Donte Cox Jr, MD Signed: 09/10/2021 9:04 AM Workstation Name: [id number]
[2021-09-10] MEDS: amLODIPine 10 MG TAB PO SCH (09:19)
[2021-09-10] MEDS: POTASSIUM CHLORIDE 10 MEQ 10 MEQ/100 ML BAG IV SCH ×4 (09:25→13:32)
[2021-09-10] MEDS: SODIUM CHLORIDE 0.9% 1000 ML 1,000 ML IV SCH (09:32)
--- NOTE | 2021-09-10 11:35 | Progress Note ---
Assessment and Plan Cultures: 09/07/2021 blood culture: No growth 09/07/2021 IR drainage culture: Pending A/P: 56/M with HTN: #RLQ abscess, likely secondary to acute appendicitis with perforation: Status post CT-guided drainage by IR on 09/07/2021. Repeat CT today showing near complete evacuation of the abscess. #Reactive thrombocytosis #Leukocytosis, resolved Recs: -Repeat CT today showing near complete evacuation of the abscess. Continue IV Zosyn while inpatient, upon discharge, p.o. Augmentin 875 mg twice daily for 5 days Russell Almendarez MD, FACP, [facility] ([facility]) O: [phone] F: [phone] C: [phone] Subjective Date of service: 09/10/21 Interval history: No fever. No complaints. Had repeat CT done. Objective - Exam Narrative Exam: Physical Exam: Constitutional: Alert, cooperative. No acute distress Head, Ears, Nose: Normocephalic, atraumatic. External ears, nose normal Eyes: Conjunctivae/corneas clear. No icterus. No ptosis. Neck: Supple, no meningeal signs Cardiovascular: S1, S2 + Respiratory: Good air entry, clear to auscultation bilaterally GI: Soft, non-tender; bowel sounds normal. No peritoneal signs. Drain + Musculoskeletal: No pedal edema, no cyanosis. Skin: No rash or abscess Hem/Lymphatic: No palpable cervical or supraclavicular nodes. No lymphangitis Psych: Mood ok. Affect normal Neurological: Awake, alert, oriented. No gross abnormality - Constitutional Vitals: Vital Signs Temp Pulse Resp BP Pulse Ox 98.0 F 68 16 184/102 99 09/10/21 04:17 09/10/21 04:17 09/10/21 04:17 09/10/21 04:17 09/10/21 04:17 Temperature -Last 24 Hours Temperature 98.0 F Temperature 97.7 F Temperature 98.5 F - Labs CBC & Chem 7: 09/09/21 03:59 09/10/21 06:07 Labs: Abnormal lab results 09/10/21 Range/Units 06:07 Potassium 3.0 L (3.6-5.0) mmol/L BUN 3 L (9-20) mg/dL Creatinine 0.7 L (0.8-1.3) mg/dL Glucose 101 H (75-100) mg/dL
--- NOTE | 2021-09-10 11:48 | Progress Note ---
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 Patient states that he initially thought that he was constipated and took laxatives and he had bowel movement for 2 days and thereafter he was unable to have a bowel movement. 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 CT scan of the abdomen pelvis revealed a large 12 cm abscess in the right abdomen with extensive mural thickening and inflammation of the ascending colon/cecum. Findings suggestive of acute appendicitis with large abscess and contained perforation and reactive colitis. Also, bilateral adrenal nodules Assessment #Acute appendicitis/appendiceal rupture #Appendiceal abscess #Acute colitis #Bilateral adrenal nodules. 2.4 cm on the right and up to 1.2 cm on the left #Accelerated hypertension #Advance care planning Disease education conducted, care plan discussed, diagnoses discussed, prognosis discussed, patient is full code, patient acknowledges understanding and agree w [facility] care plan, +30 minutes. Hospital course 09/06/2021. General surgery consulted and likely to perform appendectomy. Continue IV antibiotics and monitor closely. We will start IV hydralazine given n.p.o. status. Patient will also need further work-up given the hypertension and bilateral adrenal nodules with CT contrast adrenal mass protocol. 09/07/2021. Patient reportedly had planned placement for right lower quadrant catheter for drainage of abscess. However, apparently there were no CT techs available. Also, IR reported plans on attempting ultrasound-guided access in the [facility] however, low staffing prevents this from being performed yesterday. The patient will have r a CT guided drainage and catheter placement for abscess today. Continue IV antibiotics and consult ID for further evaluation. Patient will need outpatient follow-up for adrenal nodules. 09/08/2021. Patient underwent CT-guided drainage yesterday. We will continue antibiotics and supportive care. Continue clear liquids through the weekend. Patient will need repeat CT scan in 3-5 days to evaluate collection. Patient will need outpatient follow-up for adrenal nodules. 09/09/2021. Continue IV antibiotics and supportive care. Repeat CT scan in the next 1 to 2 days per IR recommendations. Patient will need outpatient follow-up for adrenal nodules to rule out secondary hypertension. 09/10/2021: No acute complaints on encounter today. Tolerating clear liquid diet. Had liquid stool BM this morning. Vitals are stable, afebrile, normal WBC count. Continue IV Abx at this time per ID direction. CTAP demonstrates near complete evacuation of right lower quadrant abscess. No clear mass or fistulous track demonstrated. Moderate circumferential thickening of proximal colon terminal small bowel noted. Findings consistent with ruptured appendix. Will follow recommendations of IR and general surgery. History Interval history: No acute complaints. Hospitalist Physical - Physical exam Narrative exam: Physical Exam: Constitutional: Alert, cooperative. No acute distress Head, Ears, Nose: Normocephalic, atraumatic. External ears, nose normal Eyes: Conjunctivae/corneas clear. No icterus. No ptosis. Neck: Supple, no meningeal signs Cardiovascular: S1, S2 + Respiratory: Good air entry, clear to auscultation bilaterally GI: Soft, non-tender; bowel sounds normal. No peritoneal signs. Drain + Musculoskeletal: No pedal edema, no cyanosis. Skin: No rash or abscess Hem/Lymphatic: No palpable cervical or supraclavicular nodes. No lymphangitis Psych: Mood ok. Affect normal Neurological: Awake, alert, oriented. No gross abnormality - Constitutional Vitals: Temp Pulse Resp BP Pulse Ox 98.0 F 68 16 184/102 99 09/10/21 04:17 09/10/21 04:17 09/10/21 04:17 09/10/21 04:17 09/10/21 04:17 General appearance: Present: no acute distress, well-nourished Results - Labs CBC & Chem 7: 09/09/21 03:59 09/10/21 06:07 Labs: Laboratory Last Values WBC 6.0 K/mm3 (4.5-11.0) 09/09/21 03:59 RBC 4.37 M/mm3 (3.65-5.03) 09/09/21 03:59 Hgb 13.0 gm/dl (11.8-15.2) 09/09/21 03:59 Hct 40.1 % (35.5-45.6) 09/09/21 03:59 MCV 92 fl (84-94) 09/09/21 03:59 MCH 30 pg (28-32) 09/09/21 03:59 MCHC 33 % (32-34) 09/09/21 03:59 RDW 16.6 % (13.2-15.2) H 09/09/21 03:59 Plt Count 515 K/mm3 (140-440) H 09/09/21 03:59 Lymph % (Auto) 22.5 % (13.4-35.0) 09/09/21 03:59 [place] % (Auto) 12.7 % (0.0-7.3) H 09/09/21 03:59 Eos % (Auto) 1.8 % (0.0-4.3) 09/09/21 03:59 Baso % (Auto) 0.7 % (0.0-1.8) 09/09/21 03:59 Lymph # (Auto) 1.3 K/mm3 (1.2-5.4) 09/09/21 03:59 [place] # (Auto) 0.8 K/mm3 (0.0-0.8) 09/09/21 03:59 Eos # (Auto) 0.1 K/mm3 (0.0-0.4) 09/09/21 03:59 Baso # (Auto) 0.0 K/mm3 (0.0-0.1) 09/09/21 03:59 Seg Neutrophils % 62.3 % (40.0-70.0) 09/09/21 03:59 Seg Neutrophils # 3.7 K/mm3 (1.8-7.7) 09/09/21 03:59 Sodium 138 mmol/L (137-145) 09/10/21 06:07 Potassium 3.0 mmol/L (3.6-5.0) L 09/10/21 06:07 Chloride 102.6 mmol/L (98-107) 09/10/21 06:07 Carbon Dioxide 25 mmol/L (22-30) 09/10/21 06:07 Anion Gap 13 mmol/L 09/10/21 06:07 BUN 3 mg/dL (9-20) L 09/10/21 06:07 Creatinine 0.7 mg/dL (0.8-1.3) L 09/10/21 06:07 Estimated GFR > 60 ml/min 09/10/21 06:07 BUN/Creatinine Ratio 4 % 09/10/21 06:07 Glucose 101 mg/dL (75-100) H 09/10/21 06:07 Calcium 8.7 mg/dL (8.4-10.2) 09/10/21 06:07 Total Bilirubin 0.50 mg/dL (0.1-1.2) 09/05/21 22:01 AST 25 units/L (5-40) 09/05/21 22:01 ALT 25 units/L (7-56) 09/05/21 22:01 Alkaline Phosphatase 108 units/L (35-129) 09/05/21 22:01 Total Protein 9.2 g/dL (6.3-8.2) H 09/05/21 22:01 Albumin 3.6 g/dL (3.9-5) L 09/05/21 22:01 Albumin/Globulin Ratio 0.6 % 09/05/21 22:01 Lipase 7 units/L (13-60) L 09/05/21 22:01 Urine Color Kristy (Yellow) 09/05/21 Unknown Urine Turbidity Clear (Clear) 09/05/21 Unknown Urine pH 6.0 (5.0-7.0) 09/05/21 Unknown Ur Specific [place] 1.025 (1.003-1.030) 09/05/21 Unknown Urine Protein 30 mg/dl mg/dL (Negative) 09/05/21 Unknown Urine Glucose (UA) Negative mg/dL (Negative) 09/05/21 Unknown Urine Ketones 5 mg/dL (Negative) 09/05/21 Unknown Urine Blood Trace (Negative) 09/05/21 Unknown Urine Nitrite Negative (Negative) 09/05/21 Unknown Ur Reducing Substances Not Reportable 09/05/21 Unknown Urine Bilirubin Small (Negative) 09/05/21 Unknown Urine Ictotest Positive (Negative) 09/05/21 Unknown Urine Urobilinogen 2.0 mg/dL (<2.0) 09/05/21 Unknown Ur Leukocyte Esterase Negative (Negative) 09/05/21 Unknown Urine WBC (Auto) 3.0 /HPF (0.0-6.0) 09/05/21 Unknown Urine RBC (Auto) 9.0 /HPF (0.0-6.0) 09/05/21 Unknown U Epithel Cells (Auto) 1.0 /HPF (0-13.0) 09/05/21 Unknown Hyaline Casts 5 /LPF 09/05/21 Unknown Urine Mucus 3+ /HPF 09/05/21 Unknown Microbiology: Microbiology 09/07/21 17:37 Peripheral/Venous Blood Culture - Preliminary NO GROWTH AFTER 48 HOURS 09/07/21 17:37 Peripheral/Venous Blood Culture - Preliminary NO GROWTH AFTER 48 HOURS [place]/IV: Voiding Method Toilet Active Medications - Current Medications Current Medications: Generic Name Dose Route Start Last Admin Trade Name Freq PRN Reason Stop Dose Admin Acetaminophen 650 mg 09/06/21 03:08 09/06/21 22:19 Acetaminophen 325 Mg Tab PO 650 mg Q4H PRN Administration Pain MILD(1-3)/Fever >100.5/DURAND Amlodipine Besylate 10 mg 09/10/21 08:30 09/10/21 09:19 Amlodipine 10 Mg Tab PO 10 mg DAILY ERICH Administration Hydralazine HCl 20 mg 09/06/21 11:06 09/10/21 07:47 Hydralazine 20 Mg/1 Ml Inj IV 20 mg Q4HR PRN Administration Blood Pressure Sodium Chloride 1,000 mls @ 125 mls/hr 09/06/21 03:15 09/10/21 09:32 Nacl 0.9% 1000 Ml IV 125 mls/hr DIRECT ERICH Administration Piperacillin Sod/Tazobactam Sod 4.5 gm in 100 mls @ 200 mls/hr 09/06/21 10:00 09/10/21 02:02 Zosyn/Ns 4.5gm/100ml IV 200 mls/hr Q8H ERICH Administration Protocol Potassium Chloride 10 meq in 100 mls @ 100 mls/hr 09/10/21 09:00 09/10/21 09: 31 Kcl 10meq/100ml IV 09/10/21 12:59 100 mls/hr Q1H ERICH Administration Magnesium Hydroxide 30 ml 09/06/21 03:08 Magnesium Hydroxide (Mom) Oral Liqd Udc PO Q4H PRN Constipation Morphine Sulfate 2 mg 09/06/21 03:08 09/07/21 15:31 Morphine 2 Mg/1 Ml Inj IV 2 mg Q4H PRN Administration Pain, Moderate (4-6) Morphine Sulfate 4 mg 09/06/21 03:08 09/09/21 05:39 Morphine 4 Mg/1 Ml Inj IV 4 mg Q4H PRN Administration Pain , Severe (7-10) Ondansetron HCl 4 mg 09/06/21 03:08 09/06/21 07:29 Ondansetron 4 Mg/2 Ml Inj IV 4 mg Q8H PRN Administration Nausea And Vomiting Potassium Chloride 40 meq 09/10/21 08:30 09/10/21 09:19 Potassium Chloride Er 20 Meq Tab PO 09/10/21 12:00 40 meq ONCE@0830 NR Administration Sodium Chloride 10 ml 09/06/21 10:00 09/10/21 09:31 Sodium Chloride 0.9% 10 Ml Flush Syringe IV 10 ml BID ERICH Administration Sodium Chloride 10 ml 09/06/21 03:33 Sodium Chloride 0.9% 10 Ml Flush Syringe IV PRN PRN LINE FLUSH
--- NOTE | 2021-09-10 13:49 | Event Note ---
Date: 09/10/[address] demonstrates drainage catheter in the cavity, but there is fistula formation to the ruptured appendiceal abscess cavity. Discussed with Dr. Longo. Hopefully will convert from a medium output fistula to a low output fistula and close with conservative care. Otherwise will need small bowel resection with colectomy. Drain will need to be exchanged 3 months.
[2021-09-11] MEDS: PIPERACIL/TAZOBACTA 4.5/NS 100 4.5 GM/100 ML VIAL IV SCH ×3 (02:24→18:41)
--- NOTE | 2021-09-11 08:20 | Progress Note ---
Assessment and Plan 5Discussed CT scan results with Dr. Butcher yesterday. Drainage placement is optimal with complete drainage of the fluid and air seen on the initial x-rays. In addition the drain remains immediately adjacent to the point of extravasation of contrast from the colon. At the bedside patient is advised of the results of the x-ray as described above. Optimal plans include maintenance of the drain for the next 3 to 4 weeks. And that they have very hopeful reduction in drainage. Should drainage completely stop interventional colectomy will become optional. The interim will give us the opportunity to potentially have the patient safely colonoscoped as well. Any worsening of pain increasing up of drainage or signs of sepsis can be managed at that time with a colectomy. Advance patient to full liquid diet at this time. Subjective Date of service: 09/11/21 Patient Reports: Positive: no new complaints, feels better Narrative: Discussed CT scan results with Dr. Butcher yesterday. Drainage placement is optimal with complete drainage of the fluid and air seen on the initial x-rays. In addition the drain remains immediately adjacent to the point of extravasation of contrast from the colon. At the bedside patient is advised of the results of the x-ray as described above. Optimal plans include maintenance of the drain for the next 3 to 4 weeks. And that they have very hopeful reduction in drainage. Should drainage completely stop interventional colectomy will become optional. The interim will give us the opportunity to potentially have the patient safely colonoscoped as well. Any worsening of pain increasing up of drainage or signs of sepsis can be managed at that time with a colectomy. Objective Vital Signs - 12hr 09/10/21 09/10/21 09/11/21 21:24 22:00 04:37 Temperature 98.7 F 98.4 F Pulse Rate 63 72 Respiratory 18 18 Rate Blood Pressure 148/91 172/118 O2 Sat by Pulse 98 98 97 Oximetry - Labs 09/09/21 03:59 09/10/21 06:07
--- NOTE | 2021-09-11 08:36 | Progress Note ---
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 Patient states that he initially thought that he was constipated and took laxatives and he had bowel movement for 2 days and thereafter he was unable to have a bowel movement. Patient stated that he had not had a bowel movement in 5 days and that the pain worsened the last [address]CEPTIONIST[address] scan of the abdomen pelvis revealed a large 12 cm abscess in the right abdomen with extensive mural thickening and inflammation of the ascending colon/cecum. Findings suggestive of acute appendicitis with large abscess and contained perforation and reactive colitis. Also, bilateral adrenal nodules Assessment #Acute appendicitis/appendiceal rupture #Appendiceal abscess #Acute colitis #Bilateral adrenal nodules. 2.4 cm on the right and up to 1.2 cm on the left #Accelerated hypertension #Advance care planning Disease education conducted, care plan discussed, diagnoses discussed, prognosis discussed, patient is full code, patient acknowledges understanding and agree w [facility] care plan, +30 minutes. Hospital course 09/06/2021. General surgery consulted and likely to perform appendectomy. Continue IV antibiotics and monitor closely. We will start IV hydralazine given n.p.o. status. Patient will also need further work-up given the hypertension and bilateral adrenal nodules with CT contrast adrenal mass protocol. 09/07/2021. Patient reportedly had planned placement for right lower quadrant catheter for drainage of abscess. However, apparently there were no CT techs available. 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 The patient will have r a CT guided drainage and catheter placement for abscess today. Continue IV antibiotics and consult ID for further evaluation. Patient will need outpatient follow-up for adrenal nodules. 09/08/2021. Patient underwent CT-guided drainage yesterday. We will continue antibiotics and supportive care. Continue clear liquids through the weekend. Patient will need repeat CT scan in 3-5 days to evaluate collection. Patient will need outpatient follow-up for adrenal nodules. 09/09/2021. Continue IV antibiotics and supportive care. Repeat CT scan in the next 1 to 2 days per IR recommendations. Patient will need outpatient follow-up for adrenal nodules to rule out secondary hypertension. 09/10/2021: No acute complaints on encounter today. Tolerating clear liquid diet. Had liquid stool BM this morning. Vitals are stable, afebrile, normal WBC count. Continue IV Abx at this time per ID direction. CTAP demonstrates near complete evacuation of right lower quadrant abscess. No clear mass or fistulous track demonstrated. Moderate circumferential thickening of proximal colon terminal small bowel noted. Findings consistent with ruptured appendix. Will follow recommendations of IR and general surgery. 09/11/2021 no acute complaints on encounter today. Will advance to full liquid diet. Plan is for continuation of drain and potential discharge tomorrow if patient tolerates full liquid diet. Discussed with Dr. Longo, general surgery. He will see patient outpatient in 3 weeks for colonoscopy. Continue IV Zosyn at this time. Will discharge tomorrow with Rx for p.o. Augmentin. History Interval history: No acute complaints this morning. Discussed the recommendations of surgery for full liquid diet and continuation of drain at this time. Patient voiced understanding and agreement with plan Hospitalist Physical - Physical exam Narrative exam: Physical Exam: Constitutional: Alert, cooperative. No acute distress Head, Ears, Nose: Normocephalic, atraumatic. External ears, nose normal Eyes: Conjunctivae/corneas clear. No icterus. No ptosis. Neck: Supple, no meningeal signs Cardiovascular: S1, S2 + Respiratory: Good air entry, clear to auscultation bilaterally GI: Soft, non-tender; bowel sounds normal. No peritoneal signs. Drain + Musculoskeletal: No pedal edema, no cyanosis. Skin: No rash or abscess Hem/Lymphatic: No palpable cervical or supraclavicular nodes. No lymphangitis Psych: Mood ok. Affect normal Neurological: Awake, alert, oriented. No gross abnormality - Constitutional Vitals: Temp Pulse Resp BP Pulse Ox 98.4 F 72 18 172/118 97 09/11/21 04:37 09/11/21 04:37 09/11/21 04:37 09/11/21 04:37 09/11/21 04:37 General appearance: Present: no acute distress, well-nourished Results - Labs CBC & Chem 7: 09/09/21 03:59 09/10/21 06:07 Labs: Laboratory Last Values WBC 6.0 K/mm3 (4.5-11.0) 07/11/22 03:59 RBC 4.37 M/mm3 (3.65-5.03) 09/09/21 03:59 Hgb 13.0 gm/dl (11.8-15.2) 09/09/21 03:59 Hct 40.1 % (35.5-45.6) 09/09/21 03:59 MCV 92 fl (84-94) 09/09/21 03:59 MCH 30 pg (28-32) 09/09/21 03:59 MCHC 33 % (32-34) 09/09/21 03:59 RDW 16.6 % (13.2-15.2) H 09/09/21 03:59 Plt Count 515 K/mm3 (140-440) H 09/09/21 03:59 Lymph % (Auto) 22.5 % (13.4-35.0) 09/09/21 03:59 [place] % (Auto) 12.7 % (0.0-7.3) H 09/09/21 03:59 Eos % (Auto) 1.8 % (0.0-4.3) 09/09/21 03:59 Baso % (Auto) 0.7 % (0.0-1.8) 09/09/21 03:59 Lymph # (Auto) 1.3 K/mm3 (1.2-5.4) 09/09/21 03:59 [place] # (Auto) 0.8 K/mm3 (0.0-0.8) 09/09/21 03:59 Eos # (Auto) 0.1 K/mm3 (0.0-0.4) 09/09/21 03:59 Baso # (Auto) 0.0 K/mm3 (0.0-0.1) 09/09/21 03:59 Seg Neutrophils % 62.3 % (40.0-70.0) 09/09/21 03:59 Seg Neutrophils # 3.7 K/mm3 (1.8-7.7) 09/09/21 03:59 Sodium 138 mmol/L (137-145) 09/10/21 06:07 Potassium 3.0 mmol/L (3.6-5.0) L 09/10/21 06:07 Chloride 102.6 mmol/L (98-107) 09/10/21 06:07 Carbon Dioxide 25 mmol/L (22-30) 09/10/21 06:07 Anion Gap 13 mmol/L 09/10/21 06:07 BUN 3 mg/dL (9-20) L 09/10/21 06:07 Creatinine 0.7 mg/dL (0.8-1.3) L 09/10/21 06:07 Estimated GFR > 60 ml/min 09/10/21 06:07 BUN/Creatinine Ratio 4 % 09/10/21 06:07 Glucose 101 mg/dL (75-100) H 09/10/21 06:07 Calcium 8.7 mg/dL (8.4-10.2) 09/10/21 06:07 Total Bilirubin 0.50 mg/dL (0.1-1.2) 09/05/21 22:01 AST 25 units/L (5-40) 09/05/21 22:01 ALT 25 units/L (7-56) 09/05/21 22:01 Alkaline Phosphatase 108 units/L (35-129) 09/05/21 22:01 Total Protein 9.2 g/dL (6.3-8.2) H 09/05/21 22:01 Albumin 3.6 g/dL (3.9-5) L 09/05/21 22:01 Albumin/Globulin Ratio 0.6 % 09/05/21 22:01 Lipase 7 units/L (13-60) L 09/05/21 22:01 Urine Color Kristy (Yellow) 09/05/21 Unknown Urine Turbidity Clear (Clear) 09/05/21 Unknown Urine pH 6.0 (5.0-7.0) 09/05/21 Unknown Ur Specific [place] 1.025 (1.003-1.030) 09/05/21 Unknown Urine Protein 30 mg/dl mg/dL (Negative) 09/05/21 Unknown Urine Glucose (UA) Negative mg/dL (Negative) 09/05/21 Unknown Urine Ketones 5 mg/dL (Negative) 09/05/21 Unknown Urine Blood Trace (Negative) 09/05/21 Unknown Urine Nitrite Negative (Negative) 09/05/21 Unknown Ur Reducing Substances Not Reportable 09/05/21 Unknown Urine Bilirubin Small (Negative) 09/05/21 Unknown Urine Ictotest Positive (Negative) 09/05/21 Unknown Urine Urobilinogen 2.0 mg/dL (<2.0) 09/05/21 Unknown Ur Leukocyte Esterase Negative (Negative) 09/05/21 Unknown Urine WBC (Auto) 3.0 /HPF (0.0-6.0) 09/05/21 Unknown Urine RBC (Auto) 9.0 /HPF (0.0-6.0) 09/05/21 Unknown U Epithel Cells (Auto) 1.0 /HPF (0-13.0) 09/05/21 Unknown Hyaline Casts 5 /LPF 09/05/21 Unknown Urine Mucus 3+ /HPF 09/05/21 Unknown Microbiology: Microbiology 09/07/21 17:37 Peripheral/Venous Blood Culture - Preliminary NO GROWTH AFTER 72 HOURS 09/07/21 17:37 Peripheral/Venous Blood Culture - Preliminary NO GROWTH AFTER 72 HOURS 09/07/21 11:30 Abdomen Surgical Culture - Preliminary Gram Negative Valente Benton/IV: Voiding Method Toilet Active Medications - Current Medications Current Medications: Generic Name Dose Route Start Last Admin Trade Name Freq PRN Reason Stop Dose Admin Acetaminophen 650 mg 09/06/21 03:08 09/06/21 22:19 Acetaminophen 325 Mg Tab PO 650 mg Q4H PRN Administration Pain MILD(1-3)/Fever >100.5/DURAND Amlodipine Besylate 10 mg 09/10/21 08:30 09/10/21 09:19 Amlodipine 10 Mg Tab PO 10 mg DAILY ERICH Administration Hydralazine HCl 20 mg 09/06/21 11:06 09/10/21 07:47 Hydralazine 20 Mg/1 Ml Inj IV 20 mg Q4HR PRN Administration Blood Pressure Sodium Chloride 1,000 mls @ 125 mls/hr 09/06/21 03:15 09/10/21 09:32 Nacl 0.9% 1000 Ml IV 125 mls/hr DIRECT ERICH Administration Piperacillin Sod/Tazobactam Sod 4.5 gm in 100 mls @ 200 mls/hr 09/06/21 10:00 09/11/21 02:24 Zosyn/Ns 4.5gm/100ml IV 200 mls/hr Q8H ERICH Administration Protocol Magnesium Hydroxide 30 ml 09/06/21 03:08 Magnesium Hydroxide (Mom) Oral Liqd Udc PO Q4H PRN Constipation Morphine Sulfate 2 mg 09/06/21 03:08 09/07/21 15:31 Morphine 2 Mg/1 Ml Inj IV 2 mg Q4H PRN Administration Pain, Moderate (4-6) Morphine Sulfate 4 mg 09/06/21 03:08 09/09/21 05:39 Morphine 4 Mg/1 Ml Inj IV 4 mg Q4H PRN Administration Pain , Severe (7-10) Ondansetron HCl 4 mg 09/06/21 03:08 09/06/21 07:29 Ondansetron 4 Mg/2 Ml Inj IV 4 mg Q8H PRN Administration Nausea And Vomiting Sodium Chloride 10 ml 09/06/21 10:00 09/10/21 21:37 Sodium Chloride 0.9% 10 Ml Flush Syringe IV Not Given BID ERICH Sodium Chloride 10 ml 09/06/21 03:33 Sodium Chloride 0.9% 10 Ml Flush Syringe IV PRN PRN LINE FLUSH Nutrition/Malnutrition Assess - Dietary Evaluation Nutrition/Malnutrition Findings: Nutrition Notes Start: 09/10/21 17:04 Freq: Status: Active Protocol: Document 09/10/21 17:04 AMAYA (Rec: 09/10/21 17:41 AMAYA [id number]) Nutrition Notes Need for Assessment generated from: MD Order Initial or Follow up Assessment Current Diagnosis Hypertension Other Pertinent Diagnosis Appendicitis w/Abscess, Colitis, Thrombocytosis, Bilateral Adrenal Nodules. Current Diet Clear Liquids Diet (previously ), Full Liquids Diet (from D 09/10). Labs/Tests 09/10: K 3.0, BUN 3, Crea 0.7, Glu 101. Pertinent Medications 09/10: Nutritionally unremarkable. 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 Weight Status Overweight Subjective/Other Information RD consult for dietary supplementation assessment. Pt's PO intake of Clear Liquid Diet has been Fair (50-75%), according to ADL notes, Diet advancing to Full Liquids Diet tonight as tolerated. I will prescribe dietary supplements to compensato for poor or insufficient PO intake of meals. Pt is on Room Air, O2 saturation @ 97%, according to Physical Assessment History notes. Pt presents an abdominal surgical wound as sign of concern for skin risk, according to Physical Assessment History notes. Procedure on 09/07: Drain placement in abdominal RLQ for fluid collection, well tolerated, according to Operative Report notes. Event on 09/10: CT is consistent with appendice rupture, shows fistula formation on appendiceal cavity, will require adjustments to avoid SB resection w/collectomy, according to Event notes. Percent of energy/protein needs met: Prescribed Clear Liquids Diet provides for energy/protein needs (590 Kcal/16 g) during LOS. Prescribed Full Liquids Diet provides for energy/protein needs (1,155 Kcal/37 g) during LOS. Burn Absent Trauma Absent GI Symptoms None Food Allergy No Skin Integrity/Comment Abdominal surgical wound. 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 As Evidenced by Signs and Symptoms Pt's PO intake of Clear Liquid Diet has been Fair (50-75%), according to ADL notes, Diet advancing to Full Liquids Diet tonight as tolerated. Is patient on ventilator? No Is Patient Ambulatory and/or Out of Bed Yes REE-([facility]-ambulatory/OOB) [ 2082.457 [id number]] Calculation Used for Recommendations [facility] Additional Notes Protein: 1.5-2 g/Kg ABW; 122- 162 g/day. Fluids: 1 ml/Kcal, or as per MD. Nutrition Intervention Change Diet Order: Advance to Full Liquids Diet as tolerated. Add Supplement/Snack (indicate name/kcal Start 8 fl oz Ensure Clear; /protein ) TID. Provides kCal: 720 Provides Protein (gm) 24 Goal #1 Compensate, through dietary supplementation, for possible poor or insufficient PO intake of meals during LOS. Goal #2 Adjust the dietary intervention to better serve Pt's needs and clinical conditions during LOS. Follow-Up By: 09/17/21 Additional Comments Continue monitoring food tolerance, %PO intake of meals and ONS, and BM.
[2021-09-11] MEDS: amLODIPine 10 MG TAB PO SCH (09:40)
--- NOTE | 2021-09-11 10:48 | Progress Note ---
Assessment and Plan Cultures: 09/07/2021 blood culture: No growth 09/07/2021 IR drainage culture: GNR A/P: 56/M with HTN: #RLQ abscess, likely secondary to acute appendicitis with perforation: Status post CT-guided drainage by IR on 09/07/2021. Repeat CT showed near complete evacuation of the abscess but concern for contrast extravasaction, so drain likely to remain in place. Surgery following. #Reactive thrombocytosis #Leukocytosis, resolved Recs: -f/u GNR identification, continue IV Zosyn while inpatient, upon discharge, p.o. Augmentin 875 mg twice daily for 5 days -drain management per IR and surgery Russell Almendarez MD, [place], [facility] O: [phone] F: [phone] C: [phone] Subjective Date of service: 09/11/21 Interval history: No fever. No complaints. Objective - Exam Narrative Exam: Physical Exam: Constitutional: Alert, cooperative. No acute distress Head, Ears, Nose: Normocephalic, atraumatic. External ears, nose normal Eyes: Conjunctivae/corneas clear. No icterus. No ptosis. Neck: Supple, no meningeal signs Cardiovascular: S1, S2 + Respiratory: Good air entry, clear to auscultation bilaterally GI: Soft, non-tender; bowel sounds normal. No peritoneal signs. Drain + Musculoskeletal: No pedal edema, no cyanosis. Skin: No rash or abscess Hem/Lymphatic: No palpable cervical or supraclavicular nodes. No lymphangitis Psych: Mood ok. Affect normal Neurological: Awake, alert, oriented. No gross abnormality - Constitutional Vitals: Vital Signs Temp Pulse Resp BP Pulse Ox 98.4 F 72 18 136/84 97 09/11/21 04:37 09/11/21 04:37 09/11/21 04:37 09/11/21 09:40 09/11/21 04:37 Temperature -Last 24 Hours Temperature 98.4 F Temperature 98.7 F Temperature 97.9 F Temperature 97.6 F - Labs CBC & Chem 7: 09/09/21 03:59 09/10/21 06:07
[2021-09-11] MEDS: SODIUM CHLORIDE 0.9% 1000 ML 1,000 ML IV SCH (22:57)
[2021-09-11] MEDS: hydrALAZINE 20 MG/1 ML INJ IV PRN (23:01)
[2021-09-12] MEDS: PIPERACIL/TAZOBACTA 4.5/NS 100 4.5 GM/100 ML VIAL IV SCH ×2 (04:10→09:15)
[2021-09-12] MEDS: amLODIPine 10 MG TAB PO SCH (09:15)
--- NOTE | 2021-09-12 11:28 | Discharge Summary ---
Providers - Providers Date of Admission: 09/06/21 03:08 Date of discharge: 09/12/21 Attending physician: ROBERTA GOMES MD 09/06/21 02:15 Consult to Physician [CONS] Stat Comment: Consult Interventional radiologist Consulting Provider: ERYN LONGO Physician Instructions: ADENIKE Doyle spoke with Dr. Longo @ 0213 Reason For Exam: Acute appendicitis with abscess; colitis 09/06/21 03:32 Consult to Physician [CONS] Stat Comment: ADENIKE Doyle spoke with Dr. Ayon @ 0323 Consulting Provider: MARIETTA AYON Physician Instructions: Per Dr. Longo, Surgery, routine consult for I&D Reason For Exam: appendicitis with abscess 09/07/21 09:12 Consult to Physician [CONS] Routine Comment: Consulting Provider: WILI PAL Physician Instructions: Reason For Exam: Abdominal abscess 09/10/21 13:34 Consult to Dietitian/Nutrition [CONS] Routine Physician Instructions: Reason For Exam: need protein drinks Reason for Consult: Pt needs oral supplement Primary care physician: MARLEEN CANTOR Hospitalization Reason for admission: Abdominal pain Condition: Stable Hospital course: History of presenting illness Patient is a 56-year-old -Swedish male with a history of hypertension who presented to the ED with complaints of acute onset persistent diffuse abdominal pain that radiated to the right lower quadrant area 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 Patient states that he initially thought that he was constipated and took laxatives and he had bowel movement for 2 days and thereafter he was unable to have a bowel movement. Patient stated that he had not had a bowel movement in 5 days and that the pain worsened the last [address] scan of the abdomen pelvis revealed a large 12 cm abscess in the right abdomen with extensive mural thickening and inflammation of the ascending colon/cecum. Findings suggestive of acute appendicitis with large abscess and contained perforation and reactive colitis. Also, bilateral adrenal nodules Assessment #Acute appendicitis/appendiceal rupture #Appendiceal abscess #Acute colitis #Bilateral adrenal nodules. 2.4 cm on the right and up to 1.2 cm on the left #Accelerated hypertension #Advance care planning Disease education conducted, care plan discussed, diagnoses discussed, prognosis discussed, patient is full code, patient acknowledges understanding and agree with care plan, +30 minutes. Hospital course 09/06/2021. General surgery consulted and likely to perform appendectomy. Continue IV antibiotics and monitor closely. We will start IV hydralazine given n.p.o. status. Patient will also need further work-up given the hypertension and bilateral adrenal nodules with CT contrast adrenal mass protocol. 09/07/2021. Patient reportedly had planned placement for right lower quadrant catheter for drainage of abscess. However, apparently there were no CT techs available. 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 The patient will have r a CT guided drainage and catheter placement for abscess today. Continue IV antibiotics and consult ID for further evaluation. Patient will need outpatient follow-up for adrenal nodules. 09/08/2021. Patient underwent CT-guided drainage yesterday. We will continue antibiotics and supportive care. Continue clear liquids through the weekend. Patient will need repeat CT scan in 3-5 days to evaluate collection. Patient will need outpatient follow-up for adrenal nodules. 09/09/2021. Continue IV antibiotics and supportive care. Repeat CT scan in the next 1 to 2 days per IR recommendations. Patient will need outpatient follow-up for adrenal nodules to rule out secondary hypertension. 09/10/2021: No acute complaints on encounter today. Tolerating clear liquid diet. Had liquid stool BM this morning. Vitals are stable, afebrile, normal WBC count. Continue IV Abx at this time per ID direction. CTAP demonstrates near complete evacuation of right lower quadrant abscess. No clear mass or f istulous track demonstrated. Moderate circumferential thickening of proximal colon terminal small bowel noted. Findings consistent with ruptured appendix. Will follow recommendations of IR and general surgery. 09/11/2021 no acute complaints on encounter today. Will advance to full liquid diet. Plan is for continuation of drain and potential discharge tomorrow if patient tolerates full liquid diet. Discussed with Dr. Longo, general surgery. He will see patient outpatient in 3 weeks for colonoscopy. Continue IV Zosyn at this time. Will discharge tomorrow with Rx for p.o. Augmentin. 09/12/2021: No acute complaints on encounter. Patient tolerated full liquid diet. Patient be discharged with drain and drain supplies, discharging pending these supplies and education on how to use them.. Case management notified of patient's need for the supplies. Discussed with Dr. Longo will see the patient in clinic as an outpatient. Patient will be discharged with prescription for Augmentin x5 days. Medication transmitted to pharmacy. Disposition: 01 HOME / SELF CARE / HOMELESS Final Discharge Diagnosis (Prints w/discharge instructions): Ruptured appendix, appendiceal abscess Time spent for discharge: 35 Core Measure Documentation - Palliative Care Palliative Care/ Comfort Measures: Not Applicable - Core Measures Any of the following diagnoses?: none Exam - Physical Exam Narrative exam: Physical Exam: Constitutional: Alert, cooperative. No acute distress Head, Ears, Nose: Normocephalic, atraumatic. External ears, nose normal Eyes: Conjunctivae/corneas clear. No icterus. No ptosis. Neck: Supple, no meningeal signs Cardiovascular: S1, S2 + Respiratory: Good air entry, clear to auscultation bilaterally GI: Soft, non-tender; bowel sounds normal. No peritoneal signs. Drain + Musculoskeletal: No pedal edema, no cyanosis. Skin: No rash or abscess Hem/Lymphatic: No palpable cervical or supraclavicular nodes. No lymphangitis Psych: Mood ok. Affect normal Neurological: Awake, alert, oriented. No gross abnormality - Constitutional Vitals: Temp Pulse Resp BP Pulse Ox 98.5 F 62 16 158/101 99 09/11/21 22:44 09/11/21 23:01 09/11/21 22:44 09/11/21 23:01 09/11/21 22:44 Plan Follow up with: [facility] [Provider Group] - 3-5 Days ERYN LONGO MD [Staff Physician] - 7 Days Prescriptions: Amoxicillin/K Clav Tab [Augmentin 875 mg] 1 tab PO Q12HR 5 Days #10 tab
--- NOTE | 2021-09-12 11:47 | Progress Note ---
Assessment and Plan 5Discussed CT scan results with Dr. Butcher yesterday. Drainage placement is optimal with complete drainage of the fluid and air seen on the initial x-rays. In addition the drain remains immediately adjacent to the point of extravasation of contrast from the colon. At the bedside patient is advised of the results of the x-ray as described above. Optimal plans include maintenance of the drain for the next 3 to 4 weeks. And that they have very hopeful reduction in drainage. Should drainage completely stop interventional colectomy will become optional. The interim will give us the opportunity to potentially have the patient safely colonoscoped as well. Any worsening of pain increasing up of drainage or signs of sepsis can be managed at that time with a colectomy. Okay to discharge patient this morning as he is tolerating full liquids. Follow-up with me in 1 week please. Subjective Date of service: 09/12/21 Patient Reports: Positive: no new complaints, tolerating liquids well Objective - Labs 09/09/21 03:59 09/10/21 06:07
[2021-09-12 13:42] VITALS: BP 153/91
== END 2021-09-12 15:35 | disposition home or self-care (01) | DRG 373 ==
LOC: ED 21:19 → 3A 09-06 03:08
PROVIDERS: ADMIT Internal Medicine Geriatric Medicine; ATTEND Internal Medicine
PROC: 0D9J3ZZ Drainage of Appendix, Percutaneous Approach (ICD-10-PCS; principal; 2021-09-07)
DX: K35.890 Other acute appendicitis without perforation or gangrene (principal); K52.89 Other specified noninfective gastroenteritis and colitis; K52.9 Noninfective gastroenteritis and colitis, unspecified; I10 Essential (primary) hypertension
CPT/HCPCS: 10160; 36415; 74177; 77012; 80048; 80053; 81001; 82378; 83690; 85025; 87040; 87076; 87116; 87186; 96374; G0378; J3490; J0360; J2270; J2405; J2543; J3010; J3480; J7030; J7040; Q9967